=== PATIENT | male | born 1955 | race Caucasian/White ===

== ENCOUNTER 2018-11-17 14:46 | Inpatient (IN) | payer MEDICARE, BC ==
[2018-11-17] MEDS ORDERED: Albuterol/Ipratropium 3.0-0.5 MG/3 ML Neb Soln NEB PRN (16:47)
--- NOTE | 2018-11-17 17:24 | PCM.HP ---
H&P History of Present Illness - General Date of Service: 11/17/18 Admit Problem/Dx: Admission Diagnosis/Problem Admission Diagnosis/Problem Pneumonia Source of Information: Patient History Limitations: Reports: No Limitations - History of Present Illness Initial Comments - Free Text/Narative: Patient presents to the clinic with the complaint of not feeling well. Has chills, thirsty, and body aches. Denies a fever or a cough. Denies chest pain. Recently traveled [place] to [place] to visit his sone returned on November 08, felt fine during the trip but walked about 15,000 feet each day and was at 4 different airports. Patient's feels fine. Patient recently had laser treatment done on his head for skin cancer on November 15, 2018 and that afternoon started to feel weak. Denies any rash or GI symptoms. Onset of Symptoms: Reports: Gradual Duration of Symptoms: Reports: Getting Worse Location: Reports: Chest Quality: Reports: Ache Improves with: Reports: Rest Worsens with: Reports: Movement Associated Symptoms: Reports: Fever/Chills, Loss of Appetite, Malaise, Weakness - Related Data Allergies/Adverse Reactions: Allergies Allergy/AdvReac Type Severity Reaction Status Date / Time fluticasone [From Flonase] Allergy Headache Verified 11/17/18 16:23 Home Medications: Home Meds Warfarin [Coumadin] 7.5 mg PO DAILY@1800 10/05/15 [History] metFORMIN HCl [Metformin HCl] 1,000 mg PO BID 10/05/15 [History] Flecainide Acetate 100 mg PO BID 10/06/15 [History] Metoprolol Tartrate 50 mg PO BID 10/06/15 [History] Pantoprazole Sodium 40 mg PO DAILY@209910/06/15 [History] Sertraline [Zoloft] 50 mg PO DAILY@209910/06/15 [History] atorvaSTATin [Lipitor] 10 mg PO BEDTIME 10/06/15 [History] Tamsulosin HCl 0.4 mg PO DAILY@209911/17/18 [History] Past Medical History HEENT History: Reports: Impaired Vision Cardiovascular History: Reports: Afib, Arrhythmia, High Cholesterol, Hypertension Respiratory History: Reports: Sleep Apnea Gastrointestinal History: Reports: Colon Polyp, Gastritis, GERD, GI Bleed, Hiatal Hernia, PUD Genitourinary History: Reports: Renal Calculus Musculoskeletal History: Reports: Arthritis, Fracture, Gout, Osteoarthritis Neurological History: Reports: Headaches, Chronic, Neuropathy, Diabetic Psychiatric History: Reports: Anxiety, Depression Endocrine/Metabolic History: Reports: Diabetes, Type II Hematologic History: Reports: None Immunologic History: Reports: None Oncologic (Cancer) History: Reports: Basal Cell Carcinoma Dermatologic History: Reports: None - Infectious Disease History Infectious Disease History: Reports: Chicken Pox, Measles, Mumps, Scarlet Fever - Past Surgical History Head Surgeries/Procedures: Reports: None HEENT Surgical History: Reports: Adenoidectomy, Oral Surgery, Tonsillectomy Male Surgical History: Reports: Circumcision, Varicocele Resection Musculoskeletal Surgical History: Reports: None Dermatological Surgical History: Reports: None - Past Imaging History Past Imaging History: Reports: Carotid US, MRI, Sleep Study, Stress Testing Social & Family History - Tobacco Use Smoking Status *Q: Former Smoker Years of Tobacco use: 7 Packs/Tins Daily: 0.5 Used Tobacco, but Quit: Yes Month/Year Tobacco Last Used: 1986 Second Hand Smoke Exposure: No - Caffeine Use Caffeine Use: Reports: Soda - Recreational Drug Use Recreational Drug Use: No - Living Situation & Occupation Living situation: Reports: Occupation: Employed H&P Review of Systems - Review of Systems: Review Of Systems: See Below General: Reports: Weakness HEENT: Reports: Headaches Pulmonary: Reports: No Symptoms Cardiovascular: Reports: Lightheadedness Gastrointestinal: Reports: No Symptoms Genitourinary: Reports: No Symptoms Musculoskeletal: Reports: Muscle Pain Skin: Reports: No Symptoms Psychiatric: Reports: No Symptoms Neurological: Reports: No Symptoms Hematologic/Lymphatic: Reports: No Symptoms Immunologic: Reports: No Symptoms Exam - Exam Exam: See Below - Vital Signs Vital Signs: Last Vital Signs Temp 100 F 11/17/18 16:04 Pulse 68 11/17/18 16:04 Resp 20 11/17/18 16:04 BP 135/55 L 11/17/18 16:04 Pulse Ox 100 11/17/18 16:04 Weight: 303 lb - Exam Quality Assessment: DVT Prophylaxis (om coumadin) General: Alert, Oriented, Cooperative HEENT: Conjunctiva Clear, EACs Clear, EOMI, Mucosa Moist & [place], Posterior Pharynx Clear, Pupils Reactive, TMs Clear Neck: Supple, Trachea Midline Lungs: Clear to Auscultation, Normal Respiratory Effort Cardiovascular: Regular Rate, Regular Rhythm, Normal S1, Normal S2 GI/Abdominal Exam: Normal Bowel Sounds, Soft, Non-Tender, No Organomegaly Back Exam: Normal Inspection, Full Range of Motion Extremities: Normal Inspection, Normal Range of Motion, Non-Tender, No Pedal Edema, Normal Capillary Refill Peripheral Pulses: 1+: Dorsalis Pedis (L), Dorsalis Pedis (R) Skin: Warm, Dry, Intact Neurological: Cranial Nerves Intact, Reflexes Equal Bilateral Neuro Extensive - Mental Status: Alert, Oriented x3, Normal Mood/Affect, Normal Cognition, Memory Intact DTR: 1+: Achilles (L), Achilles (R) Psychiatric: Alert, Normal Affect, Normal Mood - Problem List (1) Pneumonia SNOMED Code(s): 250582408 ICD Code: J18.9 - PNEUMONIA, UNSPECIFIED ORGANISM Status: Acute Current Visit: Yes Qualifiers: Pneumonia type: due to unspecified organism Laterality: left (2) Diabetes SNOMED Code(s): 85358742 ICD Code: E11.9 - TYPE 2 DIABETES MELLITUS WITHOUT COMPLICATIONS Status: Acute Current Visit: Yes Qualifiers: Diabetes mellitus type: type 2 Diabetes mellitus complication status: without complication (3) Lactic acid blood increased SNOMED Code(s): 1368616 ICD Code: R79.89 - OTHER SPECIFIED ABNORMAL FINDINGS OF BLOOD CHEMISTRY Status: Acute Current Visit: Yes (4) Dehydration SNOMED Code(s): 93361040 ICD Code: E86.0 - DEHYDRATION Status: Acute Current Visit: Yes Problem List Initiated/Reviewed/Updated: Yes Orders Last 24hrs: Active Orders 24 hr Category Date Time Status Patient Status [ADT] Routine ADT 11/17/18 16:47 Ordered Antiembolic Devices [RC] PER UNIT ROUTINE Care 11/17/18 16:49 Ordered Blood Glucose Check, Bedside [RC] BIDMEALS Care 11/17/18 16:47 Ordered Height and Weight [RC] DAILY Care 11/17/18 16:47 Ordered Intake and Output [RC] QSHIFT Care 11/17/18 16:48 Ordered May Shower [RC] ASDIRECTED Care 11/17/18 16:47 Ordered Oxygen Therapy [RC] PRN Care 11/17/18 16:47 Ordered Peripheral IV Care [RC] . DIRECTED Care 11/17/18 16:49 Ordered RT Aerosol Therapy [RC] ASDIRECTED Care 11/17/18 16:50 Ordered Up ad Tia [RC] ASDIRECTED Care 11/17/18 16:47 Ordered VTE/DVT Education [RC] PER UNIT ROUTINE Care 11/17/18 16:47 Ordered Vital Signs [RC] Q4H Care 11/17/18 16:47 Ordered [place] [employer] Diet [DIET] Diet 11/17/18 Dinner Ordered Chest 2V [CR] Routine Exams 11/17/18 14:45 Taken Chest 2V [CR] Routine Exams 11/20/18 07:00 Ordered C-REACTIVE PROTEIN [CHEM] DAILY Lab 11/18/18 05:11 Ordered C-REACTIVE PROTEIN [CHEM] DAILY Lab 11/19/18 05:11 Ordered C-REACTIVE PROTEIN [CHEM] DAILY Lab 11/20/18 05:11 Ordered C-REACTIVE PROTEIN [CHEM] DAILY Lab 11/21/18 05:11 Ordered CBC WITH AUTO DIFF [HEME] DAILY Lab 11/18/18 05:11 Ordered CBC WITH AUTO DIFF [HEME] DAILY Lab 11/19/18 05:11 Ordered CBC WITH AUTO DIFF [HEME] DAILY Lab 11/20/18 05:11 Ordered CBC WITH AUTO DIFF [HEME] DAILY Lab 11/21/18 05:11 Ordered COMPREHENSIVE METABOLIC PN,CMP [CHEM] DAILY Lab 11/18/18 05:11 Ordered COMPREHENSIVE METABOLIC PN,CMP [CHEM] DAILY Lab 11/19/18 05:11 Ordered COMPREHENSIVE METABOLIC PN,CMP [CHEM] DAILY Lab 11/20/18 05:11 Ordered COMPREHENSIVE METABOLIC PN,CMP [CHEM] DAILY Lab 11/21/18 05:11 Ordered CULTURE BLOOD [BC] Stat Lab 11/17/18 16:51 Ordered CULTURE BLOOD [BC] Stat Lab 11/17/18 16:51 Ordered CULTURE URINE [RM] Stat Lab 11/17/18 16:47 Ordered INR,PT,PROTHROMBIN TIME [COAG] DAILY Lab 11/18/18 05:11 Ordered INR,PT,PROTHROMBIN TIME [COAG] DAILY Lab 11/19/18 05:11 Ordered INR,PT,PROTHROMBIN TIME [COAG] DAILY Lab 11/20/18 05:11 Ordered INR,PT,PROTHROMBIN TIME [COAG] DAILY Lab 11/21/18 05:11 Ordered MYCOPLASMA IGM RAPID [MREF] Routine Lab 11/18/18 05:11 Ordered UA W/MICROSCOPIC [URIN] Routine Lab 11/17/18 16:47 Ordered Acetaminophen [Tylenol] Med 11/17/18 16:47 Ordered 650 mg PO Q4H PRN Albuterol/Ipratropium [DuoNeb 3.0-0.5 MG/3 ML] Med 11/17/18 16:47 Ordered 3 ml NEB Q4H PRN Azithromycin [Zithromax] Med 11/20/18 16:00 Ordered 500 mg PO DAILY Azithromycin [Zithromax] 500 mg Med 11/17/18 17:00 Ordered Sodium Chloride 0.9% [Normal Saline] 250 ml IV Q24H Flecainide [Tambocor] Med 11/17/18 18:00 Ordered 100 mg PO BID Lactated Ringers [Ringers, Lactated] 1,000 ml Med 11/17/18 17:00 Ordered IV ASDIRECTED Metoprolol Tartrate [Lopressor] Med 11/17/18 18:00 Ordered 50 mg PO BID Pantoprazole [ProTONIX] Med 11/17/18 21:00 Ordered 40 mg PO DAILY@2100 Sertraline [Zoloft] Med 11/17/18 21:00 Ordered 50 mg PO DAILY@2100 Sodium Chloride 0.9% [Saline Flush] Med 11/17/18 16:47 Ordered 10 ml FLUSH ASDIRECTED PRN Tamsulosin [Flomax] Med 11/17/18 21:00 Ordered 0.4 mg PO DAILY@2100 atorvaSTATin [Lipitor] Med 11/17/18 20:00 Ordered 10 mg PO BEDTIME cefTAZidime Pentahydrate [Fortaz] Med 11/18/18 00:00 Ordered 1 gm IVPUSH Q8HR Antiembolic Hose [OM.PC] Per Unit Routine Oth 11/17/18 16:49 Ordered Blood Culture x2 Reflex Set [OM.PC] Stat Oth 11/17/18 16:47 Ordered Peripheral IV Insertion Adult [OM.PC] Routine Oth 11/17/18 16:47 Ordered Saline Lock Insert [OM.PC] Routine Oth 11/17/18 16:47 Ordered Resuscitation Status Routine Resus Stat 11/17/18 16:47 Ordered Medication Orders Acetaminophen (Tylenol) 650 mg PO Q4H PRN PRN Reason: Pain (Mild 1-3)/fever Albuterol/Ipratropium (Duoneb 3.0-0.5 Mg/3 Ml) 3 ml NEB Q4H PRN PRN Reason: Dyspnea Atorvastatin Calcium (Lipitor) 10 mg PO BEDTIME [facility] Azithromycin (Zithromax) 500 mg PO DAILY [facility] Ceftazidime (Fortaz) 1 gm IVPUSH Q8HR [facility] Flecainide Acetate (Tambocor) 100 mg PO BID [facility] Lactated Ringer's (Ringers, Lactated) 1,000 mls @ 75 mls/hr IV ASDIRECTED [facility] Azithromycin 500 mg/ Sodium (Chloride) 250 mls @ 250 mls/hr IV Q24H [facility] Stop: 11/19/18 17:59 Metoprolol Tartrate (Lopressor) 50 mg PO BID [facility] Pantoprazole Sodium (Protonix) 40 mg PO DAILY@2100 [facility] Sertraline HCl (Zoloft) 50 mg PO DAILY@2100 [facility] Sodium Chloride (Saline Flush) 10 ml FLUSH ASDIRECTED PRN PRN Reason: Keep Vein Open Tamsulosin HCl (Flomax) 0.4 mg PO DAILY@2100 [facility] Assessment/Plan Comment:: 11/17/2018 Patient is admitted to inpatient services due to pneumonia, elevated lactic acid (will hold metformin), dehydration. Patient needing IV antibiotics and IV fluids and close monitoring of blood sugars due to his severity of his pneumonia. INR elevated, will hold coumadin and recheck INR in the morning. patient agreed to hospitalization in [place]. Discussed with Dr Bello. Recheck labs in the morning. Aliyah Robles,SUMMER LAW CLERK
[2018-11-17] MEDS: Azithromycin 500 MG in Sodium Chloride 0.9% 250 ML IV SCH (17:37)
[2018-11-17] MEDS ORDERED: Flecainide 100 MG Tab PO SCH (18:00)
[2018-11-17] MEDS ORDERED: Metoprolol Tartrate 50 MG Tab PO SCH (18:00)
[2018-11-17] MEDS: cefTAZidime 1 GM Vial IVPUSH SCH (18:45)
[2018-11-17] MEDS: Lactated Ringers 1,000 ML IV SCH (18:45)
[2018-11-17] MEDS: Flecainide 100 MG Tab PO SCH (21:01)
[2018-11-17] MEDS: Tamsulosin 0.4 MG Cap.ER PO SCH (21:01)
[2018-11-17] MEDS: atorvaSTATin 10 MG Tab PO SCH (21:01)
[2018-11-17] MEDS: Pantoprazole 40 MG Tab.CR PO SCH (21:02)
[2018-11-17] MEDS: Metoprolol Tartrate 50 MG Tab PO SCH (21:02)
[2018-11-17] MEDS: Sertraline 50 MG Tab PO SCH ×2 (21:02→21:09)
[2018-11-17] MEDS: Acetaminophen 325 MG Tab PO PRN (21:18)
[2018-11-18] MEDS: cefTAZidime 1 GM Vial IVPUSH SCH ×3 (03:46→19:49)
[2018-11-18] MEDS: Sodium Chloride 0.9% 10 ML Syringe FLUSH PRN ×3 (03:47→10:51)
[2018-11-18] MEDS: Sertraline 50 MG Tab PO SCH (07:42)
[2018-11-18] MEDS: Flecainide 100 MG Tab PO SCH ×2 (07:42→19:50)
[2018-11-18] MEDS: Metoprolol Tartrate 50 MG Tab PO SCH ×2 (07:43→19:53)
[2018-11-18] MEDS: Acetaminophen 325 MG Tab PO PRN ×2 (07:45→21:06)
[2018-11-18] MEDS: Lactated Ringers 1,000 ML IV SCH (07:51)
[2018-11-18 08:05] LABS: CHLORIDE,CL 102 mmol/L (98-107); SODIUM,NA 138 mmol/L (136-145)
[2018-11-18] MEDS ORDERED: guaiFENesin 600 MG Tab.ER PO PRN (17:29)
--- NOTE | 2018-11-18 17:46 | PCM.PN ---
- General Info Date of Service: 11/18/18 Admission Dx/Problem (Free Text): Admission Diagnosis/Problem Admission Diagnosis/Problem Pneumonia Functional Status: Reports: Pain Controlled, Tolerating Diet, Urinating - Review of Systems General: Reports: Fever, Weakness HEENT: Reports: No Symptoms Pulmonary: Reports: Cough Cardiovascular: Reports: No Symptoms Gastrointestinal: Reports: No Symptoms Genitourinary: Reports: No Symptoms Musculoskeletal: Reports: No Symptoms Skin: Reports: No Symptoms Neurological: Reports: Weakness Psychiatric: Reports: No Symptoms - Patient Data Vitals - Most Recent: Last Vital Signs Temp 97.6 F 11/18/18 11:00 Pulse 62 11/18/18 11:00 Resp 17 11/18/18 11:00 BP 129/42 L 11/18/18 11:00 Pulse Ox 96 11/18/18 11:00 Weight - Most Recent: 311 lb 14.4 oz I&O - Last 24 Hours: Intake & Output 11/18/18 11/18/18 11/18/18 06:59 14:59 22:59 Intake Total 200 1679 Balance 200 1679 Lab Results Last 24 Hours: Laboratory Results - last 24 hr 11/18/18 11/18/18 11/18/18 Range/Units 05:30 07:13 07:15 WBC 7.1 (4.0-10.2) K/uL RBC 3.31 L (4.33-5.41) M/uL Hgb 10.6 L (13.1-16.8) g/dL Hct 30.4 L (39.0-49.0) % MCV 91.8 (84.0-98.0) fL MCH 32.0 (28.2-33.3) pg MCHC 34.9 (31.7-36.0) g/dL RDW 13.6 (11.2-14.1) % Plt Count 83 L (150-350) K/uL Neut % (Auto) 84.2 H (45.0-80.0) % Lymph % (Auto) 4.3 L (10.0-50.0) % [place] % (Auto) 11.3 (2.0-14.0) % Eos % (Auto) 0.1 (0.0-5.0) % Baso % (Auto) 0.1 (0.0-2.0) % Neut # (Auto) 6.00 (1.40-7.00) K/uL Lymph # (Auto) 0.31 L (0.50-3.50) K/uL [place] # (Auto) 0.81 (0.00-1.00) K/uL Eos # (Auto) 0.01 (0.00-0.50) K/uL Baso # (Auto) 0.01 (0.00-0.20) K/uL PT (9.5-12.0) SEC INR Sodium (136-145) mmol/L Potassium (3.5-5.1) mmol/L Chloride (98-107) mmol/L Carbon Dioxide (21.0-32.0) mmol/L BUN (7-18) mg/dL Creatinine (0.51-1.17) mg/dL Est Cr Clr Drug Dosing mL/min Estimated GFR (MDRD) mL/min Glucose (74-106) mg/dL POC Glucose 172 H (65-110) mg/dl Calcium (8.5-10.1) mg/dL Total Bilirubin (0.2-1.0) mg/dL AST (15-37) U/L ALT (12-78) U/L Alkaline Phosphatase (46-116) IU/L C-Reactive Protein (<=0.9) mg/dL Total Protein (6.4-8.2) g/dL Albumin (3.4-5.0) g/dL Specimen Type Urinblad Urine Color Yellow Urine Appearance Clear Urine pH 5.5 (5.0-9.0) Ur Specific [place] 1.015 (1.005-1.030) Urine Protein Negative (NEGATIVE) mg/dL Urine Glucose (UA) Negative (NEGATIVE) mg/dL Urine Ketones Negative (NEGATIVE) mg/dL Urine Occult Blood Trace-intact H (NEGATIVE) Urine Nitrite Negative (NEGATIVE) Urine Bilirubin Negative (NEGATIVE) Urine Urobilinogen 4.0 H (0.2-1.0) E.U./dL Ur Leukocyte Esterase Negative (NEGATIVE) Urine RBC 0-5 /HPF Urine WBC 0-5 /HPF Ur Epithelial Cells Rare /LPF Urine Bacteria Rare (NONE TO FEW) /HPF 11/18/18 11/18/18 11/18/18 Range/Units 07:15 07:15 17:16 WBC (4.0-10.2) K/uL RBC (4.33-5.41) M/uL Hgb (13.1-16.8) g/dL Hct (39.0-49.0) % MCV (84.0-98.0) fL MCH (28.2-33.3) pg MCHC (31.7-36.0) g/dL RDW (11.2-14.1) % Plt Count (150-350) K/uL Neut % (Auto) (45.0-80.0) % Lymph % (Auto) (10.0-50.0) % [place] % (Auto) (2.0-14.0) % Eos % (Auto) (0.0-5.0) % Baso % (Auto) (0.0-2.0) % Neut # (Auto) (1.40-7.00) K/uL Lymph # (Auto) (0.50-3.50) K/uL [place] # (Auto) (0.00-1.00) K/uL Eos # (Auto) (0.00-0.50) K/uL Baso # (Auto) (0.00-0.20) K/uL PT 34.7 H (9.5-12.0) SEC INR 3.2 Sodium 138 (136-145) mmol/L Potassium 3.5 (3.5-5.1) mmol/L Chloride 102 (98-107) mmol/L Carbon Dioxide 24.1 (21.0-32.0) mmol/L BUN 15 (7-18) mg/dL Creatinine 0.87 (0.51-1.17) mg/dL Est Cr Clr Drug Dosing 90.16 mL/min Estimated GFR (MDRD) > 60 mL/min Glucose 175 H (74-106) mg/dL POC Glucose 170 H (65-110) mg/dl Calcium 7.4 L (8.5-10.1) mg/dL Total Bilirubin 1.1 H (0.2-1.0) mg/dL AST 22 (15-37) U/L ALT 30 (12-78) U/L Alkaline Phosphatase 109 (46-116) IU/L C-Reactive Protein 21.4 H (<=0.9) mg/dL Total Protein 5.9 L (6.4-8.2) g/dL Albumin 2.5 L (3.4-5.0) g/dL Specimen Type Urine Color Urine Appearance Urine pH (5.0-9.0) Ur Specific [place] (1.005-1.030) Urine Protein (NEGATIVE) mg/dL Urine Glucose (UA) (NEGATIVE) mg/dL Urine Ketones (NEGATIVE) mg/dL Urine Occult Blood (NEGATIVE) Urine Nitrite (NEGATIVE) Urine Bilirubin (NEGATIVE) Urine Urobilinogen (0.2-1.0) E.U./dL Ur Leukocyte Esterase (NEGATIVE) Urine RBC /HPF Urine WBC /HPF Ur Epithelial Cells /LPF Urine Bacteria (NONE TO FEW) /HPF [place] Results Last 24 Hours: Microbiology 11/17/18 17:10 Aerobic Blood Culture - Preliminary Blood - Venous - Lab Draw NO GROWTH AFTER 1 DAY Anaerobic Blood Culture - Preliminary NO GROWTH AFTER 1 DAY 11/17/18 17:00 Aerobic Blood Culture - Preliminary Blood - Venous NO GROWTH AFTER 1 DAY Anaerobic Blood Culture - Preliminary NO GROWTH AFTER 1 DAY Med Orders - Current: Current Medications Acetaminophen (Tylenol) 650 mg PO Q4H PRN PRN Reason: Pain (Mild 1-3)/fever Last Admin: 11/18/18 07:45 Dose: 650 mg Albuterol/Ipratropium (Duoneb 3.0-0.5 Mg/3 Ml) 3 ml NEB Q4H PRN PRN Reason: Dyspnea Atorvastatin Calcium (Lipitor) 10 mg PO BEDTIME [facility] Last Admin: 11/17/18 21:01 Dose: 10 mg Azithromycin (Zithromax) 500 mg PO DAILY [facility] Ceftazidime (Fortaz) 1 gm IVPUSH Q8H [facility] Last Admin: 11/18/18 10:50 Dose: 1 gm Flecainide Acetate (Tambocor) 100 mg PO BID@0800,1999 [facility] Last Admin: 11/18/18 07:42 Dose: 100 mg Guaifenesin (Mucinex) 600 mg PO TID PRN PRN Reason: Cough Azithromycin 500 mg/ Sodium (Chloride) 250 mls @ 250 mls/hr IV Q24H [facility] Stop: 11/19/18 17:59 Last Admin: 11/17/18 17:37 Dose: 250 mls/hr Metoprolol Tartrate (Lopressor) 50 mg PO BID@0800,1999 [facility] Last Admin: 11/18/18 07:43 Dose: 50 mg Pantoprazole Sodium (Protonix) 40 mg PO DAILY@2099 [facility] Last Admin: 11/17/18 21:02 Dose: 40 mg Sertraline HCl (Zoloft) 50 mg PO DAILY [facility] Last Admin: 11/18/18 07:42 Dose: 50 mg Sodium Chloride (Saline Flush) 10 ml FLUSH ASDIRECTED PRN PRN Reason: Keep Vein Open Last Admin: 11/18/18 10:51 Dose: 10 ml Sodium Chloride (Saline Flush) 10 ml FLUSH Q12HR [facility] Tamsulosin HCl (Flomax) 0.4 mg PO DAILY@2099 [facility] Last Admin: 11/17/18 21:01 Dose: 0.4 mg Temazepam (Restoril) 15 mg PO BEDTIME PRN PRN Reason: Insomnia Discontinued Medications Flecainide Acetate (Tambocor) 100 mg PO BID [facility] Lactated Ringer's (Ringers, Lactated) 1,000 mls @ 75 mls/hr IV ASDIRECTED [facility] Last Admin: 11/18/18 07:51 Dose: 75 mls/hr Metoprolol Tartrate (Lopressor) 50 mg PO BID [facility] Sertraline HCl (Zoloft) 50 mg PO DAILY@2099 [facility] Last Admin: 11/17/18 21:09 Dose: Not Given - Exam Quality Assessment: DVT Prophylaxis General: Alert, Cooperative, No Acute Distress HEENT: Mucous Membr. Moist/[place] Neck: Trachea Midline, No JVD Lungs: Normal Respiratory Effort, Crackles (LLL), Rhonchi (LLL) Cardiovascular: Irregular Rhythm GI/Abdominal Exam: Soft, Non-Tender, No Distention (Male) Exam: Deferred Back Exam: Normal Inspection Extremities: Normal Inspection, Non-Tender Skin: Warm, Dry, Intact, Ecchymosis Neurological: No New Focal Deficit Psy/Mental Status: Alert, Normal Affect, Normal Mood - Problem List & Annotations (1) Dehydration SNOMED Code(s): 77418955 Code(s): E86.0 - DEHYDRATION Status: Acute Current Visit: Yes (2) Diabetes SNOMED Code(s): 68745031 Code(s): E11.9 - TYPE 2 DIABETES MELLITUS WITHOUT COMPLICATIONS Status: Acute Current Visit: Yes Qualifiers: Diabetes mellitus type: type 2 Diabetes mellitus complication status: without complication (3) Pneumonia SNOMED Code(s): 600294194 Code(s): J18.9 - PNEUMONIA, UNSPECIFIED ORGANISM Status: Acute Current Visit: Yes Qualifiers: Pneumonia type: due to unspecified organism Laterality: left (4) Atrial fibrillation SNOMED Code(s): 17386427 Code(s): I48.91 - UNSPECIFIED ATRIAL FIBRILLATION Status: Chronic Priority: Medium Current Visit: No Qualifiers: Atrial fibrillation type: paroxysmal Qualified Code(s): I48.0 - Paroxysmal atrial fibrillation Annotation/Comment:: Normally in sinus rhythm as he is today with current medical therapy. INRs have been therapeutic and stable usually around 2.0 (5) Hypertension SNOMED Code(s): 61725983 Code(s): I10 - ESSENTIAL (PRIMARY) HYPERTENSION Status: Chronic Priority : Medium Current Visit: No Qualifiers: Hypertension type: essential hypertension Qualified Code(s): I10 - Essential (primary) hypertension Annotation/Comment:: Blood pressure is under good control in the emergency room (6) Mixed anxiety depressive disorder SNOMED Code(s): 277899287 Code(s): F41.8 - OTHER SPECIFIED ANXIETY DISORDERS Status: Chronic Priority: Medium Current Visit: No Annotation/Comment:: Continue to observe closely by his regular providers (7) Peptic reflux disease SNOMED Code(s): 132823685 Code(s): K21.9 - GASTRO-ESOPHAGEAL REFLUX DISEASE WITHOUT ESOPHAGITIS Status: Chronic Priority: Medium Current Visit: No Annotation/Comment:: Stable by patient history (8) Sleep apnea SNOMED Code(s): 38984721 Code(s): G47.30 - SLEEP APNEA, UNSPECIFIED Status: Chronic Priority: Medium Current Visit: No Annotation/Comment:: Patient has been compliant with his CPAP - Problem List Review Problem List Initiated/Reviewed/Updated: Yes - My Orders Last 24 Hours: My Active Orders 11/18/18 17:27 Temazepam [Restoril] 15 mg PO BEDTIME PRN 11/18/18 17:29 guaiFENesin [Mucinex] 600 mg PO TID PRN 11/18/18 20:00 Sodium Chloride 0.9% [Saline Flush] 10 ml FLUSH Q12HR - Plan Plan:: 11/17/2018 Patient is admitted to inpatient services due to pneumonia, elevated lactic acid (will hold metformin), dehydration. Patient needing IV antibiotics and IV fluids and close monitoring of blood sugars due to his severity of his pneumonia. INR elevated, will hold coumadin and recheck INR in the morning. patient agreed to hospitalization in [place]. Discussed with Dr Bello. Recheck labs in the morning. Aliyah Robles,LEARNING AND DEVELOPMENT CONSULTANT 11/18/18 Eugenia Calles MD Starting to feel a little bit better today. Still coughing. Coumadin on hold. Continue IV antibiotics.
[2018-11-18] MEDS: Azithromycin 500 MG in Sodium Chloride 0.9% 250 ML IV SCH (18:21)
[2018-11-18] MEDS: Sodium Chloride 0.9% 10 ML Syringe FLUSH SCH ×2 (18:21→19:50)
[2018-11-18] MEDS: atorvaSTATin 10 MG Tab PO SCH (19:49)
[2018-11-18] MEDS: Pantoprazole 40 MG Tab.CR PO SCH (21:02)
[2018-11-18] MEDS: Tamsulosin 0.4 MG Cap.ER PO SCH (21:02)
[2018-11-18] MEDS: Temazepam 15 MG Cap PO PRN (21:06)
[2018-11-19] MEDS: Sodium Chloride 0.9% 10 ML Syringe FLUSH PRN ×3 (02:50→17:46)
[2018-11-19] MEDS: cefTAZidime 1 GM Vial IVPUSH SCH ×3 (02:50→19:20)
[2018-11-19] MEDS: Flecainide 100 MG Tab PO SCH ×2 (07:46→19:20)
[2018-11-19] MEDS: Metoprolol Tartrate 50 MG Tab PO SCH ×2 (07:46→19:21)
[2018-11-19] MEDS: Sertraline 50 MG Tab PO SCH (07:47)
[2018-11-19 07:51] LABS: CHLORIDE,CL 104 mmol/L (98-107); SODIUM,NA 141 mmol/L (136-145)
[2018-11-19] MEDS: Sodium Chloride 0.9% 10 ML Syringe FLUSH SCH ×2 (08:45→19:21)
[2018-11-19] MEDS: Acetaminophen 325 MG Tab PO PRN (13:04)
[2018-11-19] MEDS: Warfarin 2 MG Tab PO SCH (17:45)
[2018-11-19] MEDS: Azithromycin 500 MG in Sodium Chloride 0.9% 250 ML IV SCH (17:46)
[2018-11-19] MEDS: atorvaSTATin 10 MG Tab PO SCH (19:20)
[2018-11-19] MEDS: Pantoprazole 40 MG Tab.CR PO SCH (20:23)
[2018-11-19] MEDS: Tamsulosin 0.4 MG Cap.ER PO SCH (20:23)
[2018-11-19] MEDS: Temazepam 15 MG Cap PO PRN (21:26)
--- NOTE | 2018-11-19 23:44 | PCM.PN ---
- General Info Date of Service: 11/19/18 Admission Dx/Problem (Free Text): Admission Diagnosis/Problem Admission Diagnosis/Problem Pneumonia Functional Status: Reports: Tolerating Diet, Ambulating - Review of Systems General: Reports: Fever (101.4F today at ~12:00), Weakness (improving) HEENT: Reports: Other (nose feels plugged) Pulmonary: Reports: Cough (improved) Cardiovascular: Reports: No Symptoms Gastrointestinal: Reports: No Symptoms Genitourinary: Reports: No Symptoms Musculoskeletal: Reports: No Symptoms Skin: Reports: No Symptoms Neurological: Reports: Weakness (improving) Psychiatric: Reports: No Symptoms - Patient Data Vitals - Most Recent: Last Vital Signs Temp 98.3 F 11/19/18 19:13 Pulse 71 11/19/18 19:21 Resp 12 11/19/18 19:13 BP 129/60 11/19/18 19:21 Pulse Ox 100 11/19/18 19:13 Weight - Most Recent: 311 lb 14.4 oz I&O - Last 24 Hours: Intake & Output 11/19/18 11/19/18 11/20/18 14:59 22:59 06:59 Intake Total 1610 2620 Balance 1610 2620 Lab Results Last 24 Hours: Laboratory Results - last 24 hr 11/19/18 11/19/18 11/19/18 Range/Units 07:10 07:10 07:10 WBC 5.3 (4.0-10.2) K/uL RBC 3.22 L (4.33-5.41) M/uL Hgb 10.2 L (13.1-16.8) g/dL Hct 29.9 L (39.0-49.0) % MCV 92.9 (84.0-98.0) fL MCH 31.7 (28.2-33.3) pg MCHC 34.1 (31.7-36.0) g/dL RDW 13.7 (11.2-14.1) % Plt Count 78 L (150-350) K/uL Neut % (Auto) 77.7 (45.0-80.0) % Lymph % (Auto) 6.6 L (10.0-50.0) % [place] % (Auto) 14.7 H (2.0-14.0) % Eos % (Auto) 0.8 (0.0-5.0) % Baso % (Auto) 0.2 (0.0-2.0) % Neut # (Auto) 4.11 (1.40-7.00) K/uL Lymph # (Auto) 0.35 L (0.50-3.50) K/uL [place] # (Auto) 0.78 (0.00-1.00) K/uL Eos # (Auto) 0.04 (0.00-0.50) K/uL Baso # (Auto) 0.01 (0.00-0.20) K/uL PT 26.1 H (9.5-12.0) SEC INR 2.4 Sodium 141 (136-145) mmol/L Potassium 3.8 (3.5-5.1) mmol/L Chloride 104 (98-107) mmol/L Carbon Dioxide 27.1 (21.0-32.0) mmol/L BUN 15 (7-18) mg/dL Creatinine 0.84 (0.51-1.17) mg/dL Est Cr Clr Drug Dosing 93.38 mL/min Estimated GFR (MDRD) > 60 mL/min Glucose 167 H (74-106) mg/dL POC Glucose (65-110) mg/dl Calcium 7.7 L (8.5-10.1) mg/dL Total Bilirubin 1.1 H (0.2-1.0) mg/dL AST 33 (15-37) U/L ALT 44 (12-78) U/L Alkaline Phosphatase 128 H (46-116) IU/L C-Reactive Protein 22.0 H (<=0.9) mg/dL Total Protein 5.9 L (6.4-8.2) g/dL Albumin 2.3 L (3.4-5.0) g/dL 11/19/18 11/19/18 Range/Units 07:17 17:04 WBC (4.0-10.2) K/uL RBC (4.33-5.41) M/uL Hgb (13.1-16.8) g/dL Hct (39.0-49.0) % MCV (84.0-98.0) fL MCH (28.2-33.3) pg MCHC (31.7-36.0) g/dL RDW (11.2-14.1) % Plt Count (150-350) K/uL Neut % (Auto) (45.0-80.0) % Lymph % (Auto) (10.0-50.0) % [place] % (Auto) (2.0-14.0) % Eos % (Auto) (0.0-5.0) % Baso % (Auto) (0.0-2.0) % Neut # (Auto) (1.40-7.00) K/uL Lymph # (Auto) (0.50-3.50) K/uL [place] # (Auto) (0.00-1.00) K/uL Eos # (Auto) (0.00-0.50) K/uL Baso # (Auto) (0.00-0.20) K/uL PT (9.5-12.0) SEC INR Sodium (136-145) mmol/L Potassium (3.5-5.1) mmol/L Chloride (98-107) mmol/L Carbon Dioxide (21.0-32.0) mmol/L BUN (7-18) mg/dL Creatinine (0.51-1.17) mg/dL Est Cr Clr Drug Dosing mL/min Estimated GFR (MDRD) mL/min Glucose (74-106) mg/dL POC Glucose 175 H 163 H (65-110) mg/dl Calcium (8.5-10.1) mg/dL Total Bilirubin (0.2-1.0) mg/dL AST (15-37) U/L ALT (12-78) U/L Alkaline Phosphatase (46-116) IU/L C-Reactive Protein (<=0.9) mg/dL Total Protein (6.4-8.2) g/dL Albumin (3.4-5.0) g/dL Kaden Results Last 24 Hours: Microbiology 11/17/18 17:10 Aerobic Blood Culture - Preliminary Blood - Venous - Lab Draw NO GROWTH AFTER 2 DAYS Anaerobic Blood Culture - Preliminary NO GROWTH AFTER 2 DAYS 11/17/18 17:00 Aerobic Blood Culture - Preliminary Blood - Venous NO GROWTH AFTER 2 DAYS Anaerobic Blood Culture - Preliminary NO GROWTH AFTER 2 DAYS 11/18/18 05:30 Urine Culture - Preliminary Urine, Bladder NO GROWTH AFTER 1 DAY Med Orders - Current: Current Medications Acetaminophen (Tylenol) 650 mg PO Q4H PRN PRN Reason: Pain (Mild 1-3)/fever Last Admin: 11/19/18 13:04 Dose: 650 mg Albuterol/Ipratropium (Duoneb 3.0-0.5 Mg/3 Ml) 3 ml NEB Q4H PRN PRN Reason: Dyspnea Atorvastatin Calcium (Lipitor) 10 mg PO BEDTIME [facility] Last Admin: 11/19/18 19:20 Dose: 10 mg Azithromycin (Zithromax) 500 mg PO DAILY [facility] Ceftazidime (Fortaz) 1 gm IVPUSH Q8H [facility] Last Admin: 11/19/18 19:20 Dose: 1 gm Flecainide Acetate (Tambocor) 100 mg PO BID@08,1999 [facility] Last Admin: 11/19/18 19:20 Dose: 100 mg Guaifenesin (Mucinex) 600 mg PO TID PRN PRN Reason: Cough Metoprolol Tartrate (Lopressor) 50 mg PO BID@08,1999 [facility] Last Admin: 11/19/18 19:21 Dose: 50 mg Pantoprazole Sodium (Protonix) 40 mg PO DAILY@2100 [facility] Last Admin: 11/19/18 20:23 Dose: 40 mg Sertraline HCl (Zoloft) 50 mg PO DAILY [facility] Last Admin: 11/19/18 07:47 Dose: 50 mg Sodium Chloride (Saline Flush) 10 ml FLUSH ASDIRECTED PRN PRN Reason: Keep Vein Open Last Admin: 11/19/18 17:46 Dose: 10 ml Sodium Chloride (Saline Flush) 10 ml FLUSH Q12HR [facility] Last Admin: 11/19/18 19:21 Dose: 10 ml Tamsulosin HCl (Flomax) 0.4 mg PO DAILY@2100 [facility] Last Admin: 11/19/18 20:23 Dose: 0.4 mg Temazepam (Restoril) 15 mg PO BEDTIME PRN PRN Reason: Insomnia Last Admin: 11/19/18 21:26 Dose: 15 mg Warfarin Sodium (Coumadin) 7.5 mg PO DAILY@1800 [facility] Last Admin: 11/19/18 17:45 Dose: 7.5 mg Discontinued Medications Flecainide Acetate (Tambocor) 100 mg PO BID [facility] Lactated Ringer's (Ringers, Lactated) 1,000 mls @ 75 mls/hr IV ASDIRECTED [facility] Last Admin: 11/18/18 07:51 Dose: 75 mls/hr Azithromycin 500 mg/ Sodium (Chloride) 250 mls @ 250 mls/hr IV Q24H [facility] Stop: 11/19/18 17:59 Last Admin: 11/19/18 17:46 Dose: 250 mls/hr Metoprolol Tartrate (Lopressor) 50 mg PO BID [facility] Sertraline HCl (Zoloft) 50 mg PO DAILY@2100 [facility] Last Admin: 11/17/18 21:09 Dose: Not Given - Exam Quality Assessment: DVT Prophylaxis (coumadin) General: Alert, Oriented, Cooperative, No Acute Distress HEENT: Mucous Membr. Moist/[place] Neck: Trachea Midline, No JVD Lungs: Normal Respiratory Effort, Decreased Breath Sounds, Rhonchi Cardiovascular: Regular Rate, Regular Rhythm GI/Abdominal Exam: Soft, Non-Tender, No Distention (Male) Exam: Deferred Back Exam: Normal Inspection Extremities: Normal Inspection, Non-Tender Skin: Warm, Dry, Intact Neurological: No New Focal Deficit Psy/Mental Status: Alert, Normal Affect, Normal Mood - Problem List & Annotations (1) Pneumonia SNOMED Code(s): 613956673 Code(s): J18.9 - PNEUMONIA, UNSPECIFIED ORGANISM Status: Acute Current Visit: Yes Qualifiers: Pneumonia type: due to unspecified organism Laterality: left (2) Dehydration SNOMED Code(s): 34233701 Code(s): E86.0 - DEHYDRATION Status: Acute Current Visit: Yes (3) Diabetes SNOMED Code(s): 96870932 Code(s): E11.9 - TYPE 2 DIABETES MELLITUS WITHOUT COMPLICATIONS Status: Acute Current Visit: Yes Qualifiers: Diabetes mellitus type: type 2 Diabetes mellitus complication status: without complication (4) Atrial fibrillation SNOMED Code(s): 67551634 Code(s): I48.91 - UNSPECIFIED ATRIAL FIBRILLATION Status: Chronic Priority: Medium Current Visit: No Qualifiers: Atrial fibrillation type: paroxysmal Qualified Code(s): I48.0 - Paroxysmal atrial fibrillation Annotation/Comment:: Normally in sinus rhythm as he is today with current medical therapy. INRs have been therapeutic and stable usually around 2.0 (5) Hypertension SNOMED Code(s): 08636809 Code(s): I10 - ESSENTIAL (PRIMARY) HYPERTENSION Status: Chronic Priority : Medium Current Visit: No Qualifiers: Hypertension type: essential hypertension Qualified Code(s): I10 - Essential (primary) hypertension Annotation/Comment:: Blood pressure is under good control in the emergency room (6) Mixed anxiety depressive disorder SNOMED Code(s): 456763240 Code(s): F41.8 - OTHER SPECIFIED ANXIETY DISORDERS Status: Chronic Priority: Medium Current Visit: No Annotation/Comment:: Continue to observe closely by his regular providers (7) Peptic reflux disease SNOMED Code(s): 428221572 Code(s): K21.9 - GASTRO-ESOPHAGEAL REFLUX DISEASE WITHOUT ESOPHAGITIS Status: Chronic Priority: Medium Current Visit: No Annotation/Comment:: Stable by patient history (8) Sleep apnea SNOMED Code(s): 12489689 Code(s): G47.30 - SLEEP APNEA, UNSPECIFIED Status: Chronic Priority: Medium Current Visit: No Annotation/Comment:: Patient has been compliant with his CPAP - Problem List Review Problem List Initiated/Reviewed/Updated: Yes - My Orders Last 24 Hours: My Active Orders 11/19/18 18:00 Warfarin [Coumadin] 7.5 mg PO DAILY@1800 11/20/18 05:11 SEDIMENTATION RATE AUTO [HEME] Routine - Plan Plan:: 11/17/2018 Patient is admitted to inpatient services due to pneumonia, elevated lactic acid (will hold metformin), dehydration. Patient needing IV antibiotics and IV fluids and close monitoring of blood sugars due to his severity of his pneumonia. INR elevated, will hold coumadin and recheck INR in the morning. patient agreed to hospitalization in [place]. Discussed with Dr Bello. Recheck labs in the morning. Aliyah Robles,MACHINE CONTAINER W[employer]ER 11/18/18 Eugenia Calles MD Starting to feel a little bit better today. Still coughing. Coumadin on hold. Continue IV antibiotics. 11/19/18 Eugenia Calles MD He is feeling better but did spike elevated temperature today ~12:00 to 101.4* F. CRP still quite elevated. Continue IV antibiotics and inpatient status.
[2018-11-20] MEDS: Sodium Chloride 0.9% 10 ML Syringe FLUSH PRN ×3 (03:45→20:09)
[2018-11-20] MEDS: cefTAZidime 1 GM Vial IVPUSH SCH ×3 (03:45→20:02)
[2018-11-20 07:22] LABS: CHLORIDE,CL 105 mmol/L (98-107); SODIUM,NA 140 mmol/L (136-145)
[2018-11-20] MEDS: Acetaminophen 325 MG Tab PO PRN (07:23)
[2018-11-20] MEDS: Metoprolol Tartrate 50 MG Tab PO SCH ×2 (07:23→20:02)
[2018-11-20] MEDS: Sertraline 50 MG Tab PO SCH (07:24)
[2018-11-20] MEDS: Sodium Chloride 0.9% 10 ML Syringe FLUSH SCH ×2 (07:24→20:03)
[2018-11-20] MEDS: Flecainide 100 MG Tab PO SCH ×2 (07:24→20:02)
[2018-11-20] MEDS ORDERED: Melatonin 3 MG Tab PO PRN (16:18)
[2018-11-20] MEDS: Azithromycin 250 MG Tab PO SCH (17:15)
[2018-11-20] MEDS: Warfarin 2 MG Tab PO SCH (17:16)
[2018-11-20] MEDS: Pantoprazole 40 MG Tab.CR PO SCH (20:02)
[2018-11-20] MEDS: atorvaSTATin 10 MG Tab PO SCH (20:02)
[2018-11-20] MEDS: Tamsulosin 0.4 MG Cap.ER PO SCH (20:02)
--- NOTE | 2018-11-20 20:59 | PCM.PN ---
- General Info Date of Service: 11/20/18 Admission Dx/Problem (Free Text): Admission Diagnosis/Problem Admission Diagnosis/Problem Pneumonia Functional Status: Reports: Tolerating Diet, Ambulating - Review of Systems General: Reports: Malaise (improving) HEENT: Reports: No Symptoms Pulmonary: Reports: No Symptoms Cardiovascular: Reports: No Symptoms Gastrointestinal: Reports: No Symptoms Genitourinary: Reports: No Symptoms Musculoskeletal: Reports: No Symptoms Skin: Reports: No Symptoms Neurological: Reports: No Symptoms Psychiatric: Reports: No Symptoms - Patient Data Vitals - Most Recent: Last Vital Signs Temp 97.2 F 11/20/18 16:00 Pulse 65 11/20/18 20:02 Resp 16 11/20/18 16:00 BP 128/53 L 11/20/18 20:02 Pulse Ox 98 11/20/18 16:00 Weight - Most Recent: 311 lb 14.383 oz I&O - Last 24 Hours: Intake & Output 11/20/18 11/20/18 11/20/18 06:59 14:59 22:59 Intake Total 450 720 960 Balance 450 720 960 Lab Results Last 24 Hours: Laboratory Results - last 24 hr 11/20/18 11/20/18 11/20/18 Range/Units 06:45 06:45 06:45 WBC 5.0 (4.0-10.2) K/uL RBC 3.27 L (4.33-5.41) M/uL Hgb 10.3 L (13.1-16.8) g/dL Hct 30.1 L (39.0-49.0) % MCV 92.0 (84.0-98.0) fL MCH 31.5 (28.2-33.3) pg MCHC 34.2 (31.7-36.0) g/dL RDW 13.5 (11.2-14.1) % Plt Count 97 L (150-350) K/uL Neut % (Auto) 73.6 (45.0-80.0) % Lymph % (Auto) 10.5 (10.0-50.0) % [place] % (Auto) 13.9 (2.0-14.0) % Eos % (Auto) 1.8 (0.0-5.0) % Baso % (Auto) 0.2 (0.0-2.0) % Neut # (Auto) 3.66 (1.40-7.00) K/uL Lymph # (Auto) 0.52 (0.50-3.50) K/uL [place] # (Auto) 0.69 (0.00-1.00) K/uL Eos # (Auto) 0.09 (0.00-0.50) K/uL Baso # (Auto) 0.01 (0.00-0.20) K/uL ESR 109 H (0-20) mm/hr PT 20.9 H (9.5-12.0) SEC INR 1.9 Sodium 140 (136-145) mmol/L Potassium 4.0 (3.5-5.1) mmol/L Chloride 105 (98-107) mmol/L Carbon Dioxide 28.3 (21.0-32.0) mmol/L BUN 16 (7-18) mg/dL Creatinine 0.93 (0.51-1.17) mg/dL Est Cr Clr Drug Dosing 84.34 mL/min Estimated GFR (MDRD) > 60 mL/min Glucose 165 H (74-106) mg/dL POC Glucose (65-110) mg/dl Calcium 7.9 L (8.5-10.1) mg/dL Total Bilirubin 0.9 (0.2-1.0) mg/dL AST 49 H (15-37) U/L ALT 67 (12-78) U/L Alkaline Phosphatase 160 H (46-116) IU/L C-Reactive Protein 21.2 H (<=0.9) mg/dL Total Protein 6.1 L (6.4-8.2) g/dL Albumin 2.3 L (3.4-5.0) g/dL 11/20/18 11/20/18 Range/Units 06:59 17:30 WBC (4.0-10.2) K/uL RBC (4.33-5.41) M/uL Hgb (13.1-16.8) g/dL Hct (39.0-49.0) % MCV (84.0-98.0) fL MCH (28.2-33.3) pg MCHC (31.7-36.0) g/dL RDW (11.2-14.1) % Plt Count (150-350) K/uL Neut % (Auto) (45.0-80.0) % Lymph % (Auto) (10.0-50.0) % [place] % (Auto) (2.0-14.0) % Eos % (Auto) (0.0-5.0) % Baso % (Auto) (0.0-2.0) % Neut # (Auto) (1.40-7.00) K/uL Lymph # (Auto) (0.50-3.50) K/uL [place] # (Auto) (0.00-1.00) K/uL Eos # (Auto) (0.00-0.50) K/uL Baso # (Auto) (0.00-0.20) K/uL ESR (0-20) mm/hr PT (9.5-12.0) SEC INR Sodium (136-145) mmol/L Potassium (3.5-5.1) mmol/L Chloride (98-107) mmol/L Carbon Dioxide (21.0-32.0) mmol/L BUN (7-18) mg/dL Creatinine (0.51-1.17) mg/dL Est Cr Clr Drug Dosing mL/min Estimated GFR (MDRD) mL/min Glucose (74-106) mg/dL POC Glucose 149 H 150 H (65-110) mg/dl Calcium (8.5-10.1) mg/dL Total Bilirubin (0.2-1.0) mg/dL AST (15-37) U/L ALT (12-78) U/L Alkaline Phosphatase (46-116) IU/L C-Reactive Protein (<=0.9) mg/dL Total Protein (6.4-8.2) g/dL Albumin (3.4-5.0) g/dL Kaden Results Last 24 Hours: Microbiology 11/17/18 17:10 Aerobic Blood Culture - Preliminary Blood - Venous - Lab Draw NO GROWTH AFTER 3 DAYS Anaerobic Blood Culture - Preliminary NO GROWTH AFTER 3 DAYS 11/17/18 17:00 Aerobic Blood Culture - Preliminary Blood - Venous NO GROWTH AFTER 3 DAYS Anaerobic Blood Culture - Preliminary NO GROWTH AFTER 3 DAYS 11/18/18 05:30 Urine Culture - Final Urine, Bladder NO GROWTH AFTER 2 DAYS Med Orders - Current: Current Medications Acetaminophen (Tylenol) 650 mg PO Q4H PRN PRN Reason: Pain (Mild 1-3)/fever Last Admin: 11/20/18 07:23 Dose: 650 mg Albuterol/Ipratropium (Duoneb 3.0-0.5 Mg/3 Ml) 3 ml NEB Q4H PRN PRN Reason: Dyspnea Atorvastatin Calcium (Lipitor) 10 mg PO BEDTIME [facility] Last Admin: 11/20/18 20:02 Dose: 10 mg Azithromycin (Zithromax) 500 mg PO DAILY [facility] Last Admin: 11/20/18 17:15 Dose: 500 mg Ceftazidime (Fortaz) 1 gm IVPUSH Q8H [facility] Last Admin: 11/20/18 20:02 Dose: 1 gm Flecainide Acetate (Tambocor) 100 mg PO BID@0800,1999 [facility] Last Admin: 11/20/18 20:02 Dose: 100 mg Guaifenesin (Mucinex) 600 mg PO TID PRN PRN Reason: Cough Melatonin (Melatonin) 3 mg PO BEDTIME PRN PRN Reason: Insomnia Last Admin: 11/20/18 20:07 Dose: 3 mg Metoprolol Tartrate (Lopressor) 50 mg PO BID@0800,2000 [facility] Last Admin: 11/20/18 20:02 Dose: 50 mg Pantoprazole Sodium (Protonix) 40 mg PO DAILY@2100 [facility] Last Admin: 11/20/18 20:02 Dose: 40 mg Sertraline HCl (Zoloft) 50 mg PO DAILY [facility] Last Admin: 11/20/18 07:24 Dose: 50 mg Sodium Chloride (Saline Flush) 10 ml FLUSH ASDIRECTED PRN PRN Reason: Keep Vein Open Last Admin: 11/20/18 20:09 Dose: 10 ml Sodium Chloride (Saline Flush) 10 ml FLUSH Q12HR [facility] Last Admin: 11/20/18 20:03 Dose: 10 ml Tamsulosin HCl (Flomax) 0.4 mg PO DAILY@2100 [facility] Last Admin: 11/20/18 20:02 Dose: 0.4 mg Warfarin Sodium (Coumadin) 7.5 mg PO DAILY@1800 [facility] Last Admin: 11/20/18 17:16 Dose: 7.5 mg Discontinued Medications Flecainide Acetate (Tambocor) 100 mg PO BID [facility] Lactated Ringer's (Ringers, Lactated) 1,000 mls @ 75 mls/hr IV ASDIRECTED [facility] Last Admin: 11/18/18 07:51 Dose: 75 mls/hr Azithromycin 500 mg/ Sodium (Chloride) 250 mls @ 250 mls/hr IV Q24H [facility] Stop: 11/19/18 17:59 Last Admin: 11/19/18 17:46 Dose: 250 mls/hr Metoprolol Tartrate (Lopressor) 50 mg PO BID [facility] Sertraline HCl (Zoloft) 50 mg PO DAILY@2100 [facility] Last Admin: 11/17/18 21:09 Dose: Not Given Temazepam (Restoril) 15 mg PO BEDTIME PRN PRN Reason: Insomnia Last Admin: 11/19/18 21:26 Dose: 15 mg - Exam Quality Assessment: DVT Prophylaxis (coumadin) General: Alert, Cooperative HEENT: EOMI, Mucous Membr. Moist/[employer] Neck: Trachea Midline, No JVD Lungs: Normal Respiratory Effort, Decreased Breath Sounds (LLL but improved) Cardiovascular: Regular Rate, Regular Rhythm GI/Abdominal Exam: Soft, Non-Tender, No Distention (Male) Exam: Deferred Back Exam: Normal Inspection Extremities: Normal Inspection Skin: Warm, Dry, Intact Neurological: No New Focal Deficit Psy/Mental Status: Alert, Normal Affect, Normal Mood - Problem List & Annotations (1) Pneumonia SNOMED Code(s): 304561700 Code(s): J18.9 - PNEUMONIA, UNSPECIFIED ORGANISM Status: Acute Current Visit: Yes Qualifiers: Pneumonia type: due to unspecified organism Laterality: left (2) Dehydration SNOMED Code(s): 53471975 Code(s): E86.0 - DEHYDRATION Status: Acute Current Visit: Yes (3) Diabetes SNOMED Code(s): 13225878 Code(s): E11.9 - TYPE 2 DIABETES MELLITUS WITHOUT COMPLICATIONS Status: Acute Current Visit: Yes Qualifiers: Diabetes mellitus type: type 2 Diabetes mellitus complication status: without complication (4) Atrial fibrillation SNOMED Code(s): 58114276 Code(s): I48.91 - UNSPECIFIED ATRIAL FIBRILLATION Status: Chronic Priority: Medium Current Visit: No Qualifiers: Atrial fibrillation type: paroxysmal Qualified Code(s): I48.0 - Paroxysmal atrial fibrillation Annotation/Comment:: Normally in sinus rhythm as he is today with current medical therapy. INRs have been therapeutic and stable usually around 2.0 (5) Hypertension SNOMED Code(s): 49062200 Code(s): I10 - ESSENTIAL (PRIMARY) HYPERTENSION Status: Chronic Priority : Medium Current Visit: No Qualifiers: Hypertension type: essential hypertension Qualified Code(s): I10 - Essential (primary) hypertension Annotation/Comment:: Blood pressure is under good control in the emergency room (6) Mixed anxiety depressive disorder SNOMED Code(s): 181109740 Code(s): F41.8 - OTHER SPECIFIED ANXIETY DISORDERS Status: Chronic Priority: Medium Current Visit: No Annotation/Comment:: Continue to observe closely by his regular providers (7) Peptic reflux disease SNOMED Code(s): 649882408 Code(s): K21.9 - GASTRO-ESOPHAGEAL REFLUX DISEASE WITHOUT ESOPHAGITIS Status: Chronic Priority: Medium Current Visit: No Annotation/Comment:: Stable by patient history (8) Sleep apnea SNOMED Code(s): 72151231 Code(s): G47.30 - SLEEP APNEA, UNSPECIFIED Status: Chronic Priority: Medium Current Visit: No Annotation/Comment:: Patient has been compliant with his CPAP - Problem List Review Problem List Initiated/Reviewed/Updated: Yes - My Orders Last 24 Hours: My Active Orders 11/20/18 16:18 Melatonin 3 mg PO BEDTIME PRN 11/21/18 05:11 BLOOD GAS VENOUS [BG] Routine - Plan Plan:: 11/17/2018 Patient is admitted to inpatient services due to pneumonia, elevated lactic acid (will hold metformin), dehydration. Patient needing IV antibiotics and IV fluids and close monitoring of blood sugars due to his severity of his pneumonia. INR elevated, will hold coumadin and recheck INR in the morning. patient agreed to hospitalization in [place]. Discussed with Dr Bello. Recheck labs in the morning. Aliyah Robles,SUPERVISORY FORESTER 11/18/18 Eugenia Calles MD Starting to feel a little bit better today. Still coughing. Coumadin on hold. Continue IV antibiotics. 11/19/18 Eugenia Calles MD He is feeling better but did spike elevated temperature today ~12:00 to 101.4* F. CRP still quite elevated. Continue IV antibiotics and inpatient status. 11/20/18 Eugenia Calles MD So far today no elevated temperature. He is feeling better. CRP still markedly elevated. Continue IV antibiotics and impatient status.
[2018-11-21] MEDS: cefTAZidime 1 GM Vial IVPUSH SCH ×2 (02:09→10:32)
[2018-11-21] MEDS: Sodium Chloride 0.9% 10 ML Syringe FLUSH PRN ×2 (02:09→10:31)
[2018-11-21 07:03] LABS: O2 DELIVERY DEVICE ROOM AIR
[2018-11-21 07:15] LABS: BASE EXCESS VENOUS 1 mmol/L ((-2)-3); BICARBONATE,VENOUS 26 mmol/L (23-28); O2 SATURATION VENOUS 86 %; PCO2 VENOUS 40 mmHG (41-51); PH,VENOUS 7.42 (7.31-7.41); PO2 VENOUS 51 mmHG
[2018-11-21 07:28] LABS: CHLORIDE,CL 105 mmol/L (98-107); SODIUM,NA 140 mmol/L (136-145)
[2018-11-21] MEDS: Metoprolol Tartrate 50 MG Tab PO SCH (07:58)
[2018-11-21] MEDS: Sertraline 50 MG Tab PO SCH (07:59)
[2018-11-21] MEDS: Sodium Chloride 0.9% 10 ML Syringe FLUSH SCH (07:59)
[2018-11-21] MEDS: Azithromycin 250 MG Tab PO SCH (07:59)
[2018-11-21] MEDS: Flecainide 100 MG Tab PO SCH (07:59)
[2018-11-21 12:42] VITALS: BP 121/49
--- NOTE | 2018-11-21 15:21 | PCM.PN ---
- General Info Date of Service: 11/21/18 Admission Dx/Problem (Free Text): Admission Diagnosis/Problem Admission Diagnosis/Problem Pneumonia Functional Status: Reports: Tolerating Diet, Ambulating, Urinating - Review of Systems General: Reports: No Symptoms HEENT: Reports: No Symptoms Pulmonary: Reports: No Symptoms Cardiovascular: Reports: No Symptoms Gastrointestinal: Reports: No Symptoms Genitourinary: Reports: No Symptoms Musculoskeletal: Reports: No Symptoms Skin: Reports: No Symptoms Neurological: Reports: No Symptoms Psychiatric: Reports: No Symptoms - Patient Data Vitals - Most Recent: Last Vital Signs Temp 96.6 F 11/21/18 12:00 Pulse 58 L 11/21/18 12:00 Resp 17 11/21/18 12:00 BP 121/49 L 11/21/18 12:00 Pulse Ox 100 11/21/18 12:00 Weight - Most Recent: 311 lb 14.383 oz I&O - Last 24 Hours: Intake & Output 11/21/18 11/21/18 11/21/18 06:59 14:59 22:59 Intake Total 200 960 Balance 200 960 Lab Results Last 24 Hours: Laboratory Results - last 24 hr 11/20/18 11/21/18 11/21/18 Range/Units 17:30 06:58 06:58 WBC 4.9 (4.0-10.2) K/uL RBC 3.18 L (4.33-5.41) M/uL Hgb 9.9 L (13.1-16.8) g/dL Hct 29.4 L (39.0-49.0) % MCV 92.5 (84.0-98.0) fL MCH 31.1 (28.2-33.3) pg MCHC 33.7 (31.7-36.0) g/dL RDW 13.5 (11.2-14.1) % Plt Count 114 L (150-350) K/uL Neut % (Auto) 75.2 (45.0-80.0) % Lymph % (Auto) 10.6 (10.0-50.0) % [place] % (Auto) 12.0 (2.0-14.0) % Eos % (Auto) 2.0 (0.0-5.0) % Baso % (Auto) 0.2 (0.0-2.0) % Neut # (Auto) 3.70 (1.40-7.00) K/uL Lymph # (Auto) 0.52 (0.50-3.50) K/uL [place] # (Auto) 0.59 (0.00-1.00) K/uL Eos # (Auto) 0.10 (0.00-0.50) K/uL Baso # (Auto) 0.01 (0.00-0.20) K/uL PT (9.5-12.0) SEC INR VBG pH (7.31-7.41) VBG pCO2 (41-51) mmHG VBG pO2 mmHG VBG HCO3 (23-28) mmol/L VBG Total CO2 mmol/L VBG O2 Saturation % VBG Base Excess ((-2)-3) mmol/L O2 Delivery Device Sodium 140 (136-145) mmol/L Potassium 4.0 (3.5-5.1) mmol/L Chloride 105 (98-107) mmol/L Carbon Dioxide 27.8 (21.0-32.0) mmol/L BUN 13 (7-18) mg/dL Creatinine 0.78 (0.51-1.17) mg/dL Est Cr Clr Drug Dosing 100.15 mL/min Estimated GFR (MDRD) > 60 mL/min Glucose 162 H (74-106) mg/dL POC Glucose 150 H (65-110) mg/dl Calcium 7.8 L (8.5-10.1) mg/dL Total Bilirubin 0.9 (0.2-1.0) mg/dL AST 55 H (15-37) U/L ALT 85 H (12-78) U/L Alkaline Phosphatase 203 H (46-116) IU/L C-Reactive Protein 17.9 H (<=0.9) mg/dL Total Protein 5.8 L (6.4-8.2) g/dL Albumin 2.1 L (3.4-5.0) g/dL 11/21/18 11/21/18 11/21/18 Range/Units 06:58 06:58 07:25 WBC (4.0-10.2) K/uL RBC (4.33-5.41) M/uL Hgb (13.1-16.8) g/dL Hct (39.0-49.0) % MCV (84.0-98.0) fL MCH (28.2-33.3) pg MCHC (31.7-36.0) g/dL RDW (11.2-14.1) % Plt Count (150-350) K/uL Neut % (Auto) (45.0-80.0) % Lymph % (Auto) (10.0-50.0) % [place] % (Auto) (2.0-14.0) % Eos % (Auto) (0.0-5.0) % Baso % (Auto) (0.0-2.0) % Neut # (Auto) (1.40-7.00) K/uL Lymph # (Auto) (0.50-3.50) K/uL Over[place] # (Auto) (0.00-1.00) K/uL Eos # (Auto) (0.00-0.50) K/uL Baso # (Auto) (0.00-0.20) K/uL PT 23.6 H (9.5-12.0) SEC INR 2.2 VBG pH 7.42 H (7.31-7.41) VBG pCO2 40 L (41-51) mmHG VBG pO2 51 mmHG VBG HCO3 26 (23-28) mmol/L VBG Total CO2 27 mmol/L VBG O2 Saturation 86 % VBG Base Excess 1 ((-2)-3) mmol/L O2 Delivery Device Room air Sodium (136-145) mmol/L Potassium (3.5-5.1) mmol/L Chloride (98-107) mmol/L Carbon Dioxide (21.0-32.0) mmol/L BUN (7-18) mg/dL Creatinine (0.51-1.17) mg/dL Est Cr Clr Drug Dosing mL/min Estimated GFR (MDRD) mL/min Glucose (74-106) mg/dL POC Glucose 166 H (65-110) mg/dl Calcium (8.5-10.1) mg/dL Total Bilirubin (0.2-1.0) mg/dL AST (15-37) U/L ALT (12-78) U/L Alkaline Phosphatase (46-116) IU/L C-Reactive Protein (<=0.9) mg/dL Total Protein (6.4-8.2) g/dL Albumin (3.4-5.0) g/dL Kaden Results Last 24 Hours: Microbiology 11/18/18 07:15 Mycoplasma Serology - Final Blood 11/17/18 17:10 Aerobic Blood Culture - Preliminary Blood - Venous - Lab Draw NO GROWTH AFTER 3 DAYS Anaerobic Blood Culture - Preliminary NO GROWTH AFTER 3 DAYS 11/17/18 17:00 Aerobic Blood Culture - Preliminary Blood - Venous NO GROWTH AFTER 3 DAYS Anaerobic Blood Culture - Preliminary NO GROWTH AFTER 3 DAYS Med Orders - Current: Current Medications Acetaminophen (Tylenol) 650 mg PO Q4H PRN PRN Reason: Pain (Mild 1-3)/fever Last Admin: 11/20/18 07:23 Dose: 650 mg Albuterol/Ipratropium (Duoneb 3.0-0.5 Mg/3 Ml) 3 ml NEB Q4H PRN PRN Reason: Dyspnea Atorvastatin Calcium (Lipitor) 10 mg PO BEDTIME [facility] Last Admin: 11/20/18 20:02 Dose: 10 mg Azithromycin (Zithromax) 500 mg PO DAILY [facility] Last Admin: 11/21/18 07:59 Dose: 500 mg Ceftazidime (Fortaz) 1 gm IVPUSH Q8H [facility] Last Admin: 11/21/18 10:32 Dose: 1 gm Flecainide Acetate (Tambocor) 100 mg PO BID@799,1999 [facility] Last Admin: 11/21/18 07:59 Dose: 100 mg Guaifenesin (Mucinex) 600 mg PO TID PRN PRN Reason: Cough Melatonin (Melatonin) 3 mg PO BEDTIME PRN PRN Reason: Insomnia Last Admin: 11/20/18 20:07 Dose: 3 mg Metoprolol Tartrate (Lopressor) 50 mg PO BID@0800,1999 [facility] Last Admin: 11/21/18 07:58 Dose: 50 mg Pantoprazole Sodium (Protonix) 40 mg PO DAILY@2099 [facility] Last Admin: 11/20/18 20:02 Dose: 40 mg Sertraline HCl (Zoloft) 50 mg PO DAILY [facility] Last Admin: 11/21/18 07:59 Dose: 50 mg Sodium Chloride (Saline Flush) 10 ml FLUSH ASDIRECTED PRN PRN Reason: Keep Vein Open Last Admin: 11/21/18 10:31 Dose: 10 ml Sodium Chloride (Saline Flush) 10 ml FLUSH Q12HR [facility] Last Admin: 11/21/18 07:59 Dose: 10 ml Tamsulosin HCl (Flomax) 0.4 mg PO DAILY@2100 [facility] Last Admin: 11/20/18 20:02 Dose: 0.4 mg Warfarin Sodium (Coumadin) 7.5 mg PO DAILY@1800 [facility] Discontinued Medications Flecainide Acetate (Tambocor) 100 mg PO BID [facility] Lactated Ringer's (Ringers, Lactated) 1,000 mls @ 75 mls/hr IV ASDIRECTED [facility] Last Admin: 11/18/18 07:51 Dose: 75 mls/hr Azithromycin 500 mg/ Sodium (Chloride) 250 mls @ 250 mls/hr IV Q24H [facility] Stop: 11/19/18 17:59 Last Admin: 11/19/18 17:46 Dose: 250 mls/hr Metoprolol Tartrate (Lopressor) 50 mg PO BID [facility] Sertraline HCl (Zoloft) 50 mg PO DAILY@2100 [facility] Last Admin: 11/17/18 21:09 Dose: Not Given Temazepam (Restoril) 15 mg PO BEDTIME PRN PRN Reason: Insomnia Last Admin: 11/19/18 21:26 Dose: 15 mg Warfarin Sodium (Coumadin) 7.5 mg PO DAILY@1800 [facility] Last Admin: 11/20/18 17:16 Dose: 7.5 mg - Exam Quality Assessment: DVT Prophylaxis (coumadin) HEENT: Mucous Membr. Moist/[place] Neck: Trachea Midline, No JVD Lungs: Normal Respiratory Effort, Decreased Breath Sounds (LLL but clearing) Cardiovascular: Regular Rate, Regular Rhythm GI/Abdominal Exam: Soft, Non-Tender, No Distention (Male) Exam: Deferred Back Exam: Normal Inspection Extremities: Normal Inspection, Non-Tender Skin: Warm, Dry, Intact Neurological: No New Focal Deficit Psy/Mental Status: Alert, Normal Affect, Normal Mood - Problem List & Annotations (1) Pneumonia SNOMED Code(s): 822824174 Code(s): J18.9 - PNEUMONIA, UNSPECIFIED ORGANISM Status: Acute Current Visit: Yes Qualifiers: Pneumonia type: due to unspecified organism Laterality: left (2) Dehydration SNOMED Code(s): 64836947 Code(s): E86.0 - DEHYDRATION Status: Acute Current Visit: Yes (3) Diabetes SNOMED Code(s): 39740683 Code(s): E11.9 - TYPE 2 DIABETES MELLITUS WITHOUT COMPLICATIONS Status: Acute Current Visit: Yes Qualifiers: Diabetes mellitus type: type 2 Diabetes mellitus complication status: without complication (4) Atrial fibrillation SNOMED Code(s): 25082195 Code(s): I48.91 - UNSPECIFIED ATRIAL FIBRILLATION Status: Chronic Priority: Medium Current Visit: No Qualifiers: Atrial fibrillation type: paroxysmal Qualified Code(s): I48.0 - Paroxysmal atrial fibrillation Annotation/Comment:: Normally in sinus rhythm as he is today with current medical therapy. INRs have been therapeutic and stable usually around 2.0 (5) Hypertension SNOMED Code(s): 65488714 Code(s): I10 - ESSENTIAL (PRIMARY) HYPERTENSION Status: Chronic Priority : Medium Current Visit: No Qualifiers: Hypertension type: essential hypertension Qualified Code(s): I10 - Essential (primary) hypertension Annotation/Comment:: Blood pressure is under good control in the emergency room (6) Mixed anxiety depressive disorder SNOMED Code(s): 308922163 Code(s): F41.8 - OTHER SPECIFIED ANXIETY DISORDERS Status: Chronic Priority: Medium Current Visit: No Annotation/Comment:: Continue to observe closely by his regular providers (7) Peptic reflux disease SNOMED Code(s): 961196545 Code(s): K21.9 - GASTRO-ESOPHAGEAL REFLUX DISEASE WITHOUT ESOPHAGITIS Status: Chronic Priority: Medium Current Visit: No Annotation/Comment:: Stable by patient history (8) Sleep apnea SNOMED Code(s): 98762749 Code(s): G47.30 - SLEEP APNEA, UNSPECIFIED Status: Chronic Priority: Medium Current Visit: No Annotation/Comment:: Patient has been compliant with his CPAP - Problem List Review Problem List Initiated/Reviewed/Updated: Yes - My Orders Last 24 Hours: My Active Orders 11/20/18 16:18 Melatonin 3 mg PO BEDTIME PRN 11/21/18 15:17 Ready for Discharge [RC] PER UNIT ROUTINE 11/21/18 15:18 Discontinue Saline Lock [Peripheral IV Discontinue] [OM.PC] Routine 11/21/18 18:00 Warfarin [Coumadin] 7.5 mg PO DAILY@1800 - Plan Plan:: 11/17/2018 Patient is admitted to inpatient services due to pneumonia, elevated lactic acid (will hold metformin), dehydration. Patient needing IV antibiotics and IV fluids and close monitoring of blood sugars due to his severity of his pneumonia. INR elevated, will hold coumadin and recheck INR in the morning. patient agreed to hospitalization in [place]. Discussed with Dr Bello. Recheck labs in the morning. Aliyah Robles,LACE FINISHER 11/18/18 Eugenia Calles MD Starting to feel a little bit better today. Still coughing. Coumadin on hold. Continue IV antibiotics. 11/19/18 Eugenia Calles MD He is feeling better but did spike elevated temperature today ~12:00 to 101.4* F. CRP still quite elevated. Continue IV antibiotics and inpatient status. 11/20/18 Eugenia Calles MD So far today no elevated temperature. He is feeling better. CRP still markedly elevated. Continue IV antibiotics and impatient status. 11/21/18 Eugenia Calles MD Feeling better. Minimal cough. CRP finally starting to decrease although still elevated. Discussed with him. He is clinically improved and stable for discharge to home and continue on oral antibiotics. Follow up in the clinic.
--- NOTE | 2018-11-21 15:22 | PCM.DCSUM1 ---
Discharge Summary - Hospital Course Diagnosis: Stroke: No - Discharge Data Discharge Date: 11/21/18 Discharge Disposition: Home, Self-Care 01 Condition: Good - Discharge Diagnosis/Problem(s) (1) Pneumonia SNOMED Code(s): 619008158 ICD Code: J18.9 - PNEUMONIA, UNSPECIFIED ORGANISM Status: Acute Current Visit: Yes Qualifiers: Pneumonia type: due to unspecified organism Laterality: left (2) Dehydration SNOMED Code(s): 16205175 ICD Code: E86.0 - DEHYDRATION Status: Acute Current Visit: Yes (3) Diabetes SNOMED Code(s): 20253740 ICD Code: E11.9 - TYPE 2 DIABETES MELLITUS WITHOUT COMPLICATIONS Status: Acute Current Visit: Yes Qualifiers: Diabetes mellitus type: type 2 Diabetes mellitus complication status: without complication (4) Atrial fibrillation SNOMED Code(s): 73138526 ICD Code: I48.91 - UNSPECIFIED ATRIAL FIBRILLATION Status: Chronic Priority: Medium Current Visit: No Problem Details: Normally in sinus rhythm as he is today with current medical therapy. INRs have been therapeutic and stable usually around 2.0 Qualifiers: Atrial fibrillation type: paroxysmal Qualified Code(s): I48.0 - Paroxysmal atrial fibrillation (5) Hypertension SNOMED Code(s): 64544715 ICD Code: I10 - ESSENTIAL (PRIMARY) HYPERTENSION Status: Chronic Priority : Medium Current Visit: No Problem Details: Blood pressure is under good control in the emergency room Qualifiers: Hypertension type: essential hypertension Qualified Code(s): I10 - Essential (primary) hypertension (6) Mixed anxiety depressive disorder SNOMED Code(s): 895621002 ICD Code: F41.8 - OTHER SPECIFIED ANXIETY DISORDERS Status: Chronic Priority: Medium Current Visit: No Problem Details: Continue to observe closely by his regular providers (7) Peptic reflux disease SNOMED Code(s): 253641534 ICD Code: K21.9 - GASTRO-ESOPHAGEAL REFLUX DISEASE WITHOUT ESOPHAGITIS Status: Chronic Priority: Medium Current Visit: No Problem Details: Stable by patient history (8) Sleep apnea SNOMED Code(s): 79303663 ICD Code: G47.30 - SLEEP APNEA, UNSPECIFIED Status: Chronic Priority: Medium Current Visit: No Problem Details: Patient has been compliant with his CPAP - Patient Instructions Diet: Diabetic Diet Activity: As Tolerated (Take it easy for the next week) Driving: Do Not Drive (today) Showering/Bathing: May Shower Notify Provider of: Fever Other/Special Instructions: Call [facility] and schedule an appointment within the next week to see Aliyah and have your blood rechecked at the clinic. - Discharge Plan *PRESCRIPTION DRUG MONITORING PROGRAM REVIEWED*: Not Applicable *COPY OF PRESCRIPTION DRUG MONITORING REPORT IN PATIENT MIGUELINA: Not Applicable Prescriptions/Med Rec: Cefuroxime Axetil [Ceftin] 500 mg PO BID #15 tablet Home Medications: Home Meds Warfarin [Coumadin] 7.5 mg PO DAILY@1800 10/05/15 [History] metFORMIN HCl [Metformin HCl] 1,000 mg PO BID 10/05/15 [History] Flecainide Acetate 100 mg PO BID 10/06/15 [History] Metoprolol Tartrate 50 mg PO BID 10/06/15 [History] Pantoprazole Sodium 40 mg PO DAILY@209910/06/15 [History] Sertraline [Zoloft] 50 mg PO DAILY@209910/06/15 [History] atorvaSTATin [Lipitor] 10 mg PO BEDTIME 10/06/15 [History] Tamsulosin HCl 0.4 mg PO DAILY@209911/17/18 [History] Cefuroxime Axetil [Ceftin] 500 mg PO BID #15 tablet 11/21/18 [Rx] Oxygen Therapy Mode: Room Air - Discharge Summary/Plan Comment DC Time >30 min.: No - Patient Data Vitals - Most Recent: Last Vital Signs Temp 96.6 F 11/21/18 12:00 Pulse 58 L 11/21/18 12:00 Resp 17 11/21/18 12:00 BP 121/49 L 11/21/18 12:00 Pulse Ox 100 11/21/18 12:00 Weight - Most Recent: 311 lb 14.383 oz I&O - Last 24 hours: Intake & Output 11/21/18 11/21/18 11/21/18 06:59 14:59 22:59 Intake Total 200 960 Balance 200 960 Lab Results - Last 24 hrs: Laboratory Results - last 24 hr 11/20/18 11/21/18 11/21/18 Range/Units 17:30 06:58 06:58 WBC 4.9 (4.0-10.2) K/uL RBC 3.18 L (4.33-5.41) M/uL Hgb 9.9 L (13.1-16.8) g/dL Hct 29.4 L (39.0-49.0) % MCV 92.5 (84.0-98.0) fL MCH 31.1 (28.2-33.3) pg MCHC 33.7 (31.7-36.0) g/dL RDW 13.5 (11.2-14.1) % Plt Count 114 L (150-350) K/uL Neut % (Auto) 75.2 (45.0-80.0) % Lymph % (Auto) 10.6 (10.0-50.0) % [place] % (Auto) 12.0 (2.0-14.0) % Eos % (Auto) 2.0 (0.0-5.0) % Baso % (Auto) 0.2 (0.0-2.0) % Neut # (Auto) 3.70 (1.40-7.00) K/uL Lymph # (Auto) 0.52 (0.50-3.50) K/uL [place]inger # (Auto) 0.59 (0.00-1.00) K/uL Eos # (Auto) 0.10 (0.00-0.50) K/uL Baso # (Auto) 0.01 (0.00-0.20) K/uL PT (9.5-12.0) SEC INR VBG pH (7.31-7.41) VBG pCO2 (41-51) mmHG VBG pO2 mmHG VBG HCO3 (23-28) mmol/L VBG Total CO2 mmol/L VBG O2 Saturation % VBG Base Excess ((-2)-3) mmol/L O2 Delivery Device Sodium 140 (136-145) mmol/L Potassium 4.0 (3.5-5.1) mmol/L Chloride 105 (98-107) mmol/L Carbon Dioxide 27.8 (21.0-32.0) mmol/L BUN 13 (7-18) mg/dL Creatinine 0.78 (0.51-1.17) mg/dL Est Cr Clr Drug Dosing 100.15 mL/min Estimated GFR (MDRD) > 60 mL/min Glucose 162 H (74-106) mg/dL POC Glucose 150 H (65-110) mg/dl Calcium 7.8 L (8.5-10.1) mg/dL Total Bilirubin 0.9 (0.2-1.0) mg/dL AST 55 H (15-37) U/L ALT 85 H (12-78) U/L Alkaline Phosphatase 203 H (46-116) IU/L C-Reactive Protein 17.9 H (<=0.9) mg/dL Total Protein 5.8 L (6.4-8.2) g/dL Albumin 2.1 L (3.4-5.0) g/dL 11/21/18 11/21/18 11/21/18 Range/Units 06:58 06:58 07:25 WBC (4.0-10.2) K/uL RBC (4.33-5.41) M/uL Hgb (13.1-16.8) g/dL Hct (39.0-49.0) % MCV (84.0-98.0) fL MCH (28.2-33.3) pg MCHC (31.7-36.0) g/dL RDW (11.2-14.1) % Plt Count (150-350) K/uL Neut % (Auto) (45.0-80.0) % Lymph % (Auto) (10.0-50.0) % [place]inger % (Auto) (2.0-14.0) % Eos % (Auto) (0.0-5.0) % Baso % (Auto) (0.0-2.0) % Neut # (Auto) (1.40-7.00) K/uL Lymph # (Auto) (0.50-3.50) K/uL [place]inger # (Auto) (0.00-1.00) K/uL Eos # (Auto) (0.00-0.50) K/uL Baso # (Auto) (0.00-0.20) K/uL PT 23.6 H (9.5-12.0) SEC INR 2.2 VBG pH 7.42 H (7.31-7.41) VBG pCO2 40 L (41-51) mmHG VBG pO2 51 mmHG VBG HCO3 26 (23-28) mmol/L VBG Total CO2 27 mmol/L VBG O2 Saturation 86 % VBG Base Excess 1 ((-2)-3) mmol/L O2 Delivery Device Room air Sodium (136-145) mmol/L Potassium (3.5-5.1) mmol/L Chloride (98-107) mmol/L Carbon Dioxide (21.0-32.0) mmol/L BUN (7-18) mg/dL Creatinine (0.51-1.17) mg/dL Est Cr Clr Drug Dosing mL/min Estimated GFR (MDRD) mL/min Glucose (74-106) mg/dL POC Glucose 166 H (65-110) mg/dl Calcium (8.5-10.1) mg/dL Total Bilirubin (0.2-1.0) mg/dL AST (15-37) U/L ALT (12-78) U/L Alkaline Phosphatase (46-116) IU/L C-Reactive Protein (<=0.9) mg/dL Total Protein (6.4-8.2) g/dL Albumin (3.4-5.0) g/dL LISSA Results - Last 24 hrs: Microbiology 11/18/18 07:15 Mycoplasma Serology - Final Blood 11/17/18 17:10 Aerobic Blood Culture - Preliminary Blood - Venous - Lab Draw NO GROWTH AFTER 3 DAYS Anaerobic Blood Culture - Preliminary NO GROWTH AFTER 3 DAYS 11/17/18 17:00 Aerobic Blood Culture - Preliminary Blood - Venous NO GROWTH AFTER 3 DAYS Anaerobic Blood Culture - Preliminary NO GROWTH AFTER 3 DAYS Med Orders - Current: Current Medications Acetaminophen (Tylenol) 650 mg PO Q4H PRN PRN Reason: Pain (Mild 1-3)/fever Last Admin: 11/20/18 07:23 Dose: 650 mg Albuterol/Ipratropium (Duoneb 3.0-0.5 Mg/3 Ml) 3 ml NEB Q4H PRN PRN Reason: Dyspnea Atorvastatin Calcium (Lipitor) 10 mg PO BEDTIME [facility] Last Admin: 11/20/18 20:02 Dose: 10 mg Azithromycin (Zithromax) 500 mg PO DAILY [facility] Last Admin: 11/21/18 07:59 Dose: 500 mg Ceftazidime (Fortaz) 1 gm IVPUSH Q8H [facility] Last Admin: 11/21/18 10:32 Dose: 1 gm Flecainide Acetate (Tambocor) 100 mg PO BID@0800,2000 [facility] Last Admin: 11/21/18 07:59 Dose: 100 mg Guaifenesin (Mucinex) 600 mg PO TID PRN PRN Reason: Cough Melatonin (Melatonin) 3 mg PO BEDTIME PRN PRN Reason: Insomnia Last Admin: 11/20/18 20:07 Dose: 3 mg Metoprolol Tartrate (Lopressor) 50 mg PO BID@0800,1999 [facility] Last Admin: 11/21/18 07:58 Dose: 50 mg Pantoprazole Sodium (Protonix) 40 mg PO DAILY@2100 [facility] Last Admin: 11/20/18 20:02 Dose: 40 mg Sertraline HCl (Zoloft) 50 mg PO DAILY [facility] Last Admin: 11/21/18 07:59 Dose: 50 mg Sodium Chloride (Saline Flush) 10 ml FLUSH ASDIRECTED PRN PRN Reason: Keep Vein Open Last Admin: 11/21/18 10:31 Dose: 10 ml Sodium Chloride (Saline Flush) 10 ml FLUSH Q12HR [facility] Last Admin: 11/21/18 07:59 Dose: 10 ml Tamsulosin HCl (Flomax) 0.4 mg PO DAILY@2100 [facility] Last Admin: 11/20/18 20:02 Dose: 0.4 mg Warfarin Sodium (Coumadin) 7.5 mg PO DAILY@1800 [facility] Discontinued Medications Flecainide Acetate (Tambocor) 100 mg PO BID [facility] Lactated Ringer's (Ringers, Lactated) 1,000 mls @ 75 mls/hr IV ASDIRECTED [facility] Last Admin: 11/18/18 07:51 Dose: 75 mls/hr Azithromycin 500 mg/ Sodium (Chloride) 250 mls @ 250 mls/hr IV Q24H [facility] Stop: 11/19/18 17:59 Last Admin: 11/19/18 17:46 Dose: 250 mls/hr Metoprolol Tartrate (Lopressor) 50 mg PO BID [facility] Sertraline HCl (Zoloft) 50 mg PO DAILY@2100 [facility] Last Admin: 11/17/18 21:09 Dose: Not Given Temazepam (Restoril) 15 mg PO BEDTIME PRN PRN Reason: Insomnia Last Admin: 11/19/18 21:26 Dose: 15 mg Warfarin Sodium (Coumadin) 7.5 mg PO DAILY@1800 [facility] Last Admin: 11/20/18 17:16 Dose: 7.5 mg
[2018-11-21] MEDS ORDERED: Warfarin 2.5 MG Tab PO SCH (18:00)
== END 2018-11-21 15:40 | disposition home or self-care (01) | DRG 195 ==
LOC: LL.DI 14:46 → LL.MS 15:45
PROVIDERS: ADMIT Nurse Practitioner Family; ATTEND Family Medicine
DX: J18.9 Pneumonia, unspecified organism (principal); H54.7 Unspecified visual loss; E78.00 Pure hypercholesterolemia, unspecified; I10 Essential (primary) hypertension; K21.9 Gastro-esophageal reflux disease without esophagitis; F41.8 Other specified anxiety disorders; M19.91 Primary osteoarthritis, unspecified site; I48.0 Paroxysmal atrial fibrillation; E11.40 Type 2 diabetes mellitus with diabetic neuropathy, unspecified; G89.29 Other chronic pain; R51 Headache; Z87.11 Personal history of peptic ulcer disease; G47.30 Sleep apnea, unspecified; Z87.891 Personal history of nicotine dependence; Z79.01 Long term (current) use of anticoagulants; Z79.84 Long term (current) use of oral hypoglycemic drugs; Z85.828 Personal history of other malignant neoplasm of skin; Z79.899 Other long term (current) drug therapy; Z86.010 Personal history of colon polyps; E86.0 Dehydration; R79.89 Other specified abnormal findings of blood chemistry
CPT/HCPCS: 36415; 71046; 80053; 81001; 82803; 82962; 85025; 85610; 85652; 86140; 86738; 87040; 87086; A9270-GY; J0456; J0713; J7050; J7120

== ENCOUNTER 2023-03-12 14:30 | Emergency (ER) | payer MEDICARE, BC ==
[2023-03-12 14:36] VITALS: PULSE 50
[2023-03-12 15:05] VITALS: BP 145/63
== END 2023-03-12 15:45 | disposition home or self-care (01) ==
LOC: LL.ED 14:30 → SUPCPDRO 14:30 → LL.ED 15:45
DX: Z48.89 Encounter for other specified surgical aftercare (principal); I48.91 Unspecified atrial fibrillation; I10 Essential (primary) hypertension; E78.00 Pure hypercholesterolemia, unspecified; E11.9 Type 2 diabetes mellitus without complications; Z87.891 Personal history of nicotine dependence; Z88.8 Allergy status to other drugs, medicaments and biological substances
CPT/HCPCS: 99283

== ENCOUNTER 2024-04-29 13:51 | Inpatient (IN) | payer MEDICARE, BC ==
[2024-04-29 14:14] LABS: BASOPHILS ABSOLUTE AUTO 0.01 K/uL (0.00-0.20); BASOPHILS PERCENT AUTO 0.1 % (0.0-2.0); EOSINOPHILS ABSOLUTE AUTO 0.01 K/uL (0.00-0.50); EOSINOPHILS PERCENT AUTO 0.1 % (0.0-5.0); HEMATOCRIT 35.9 % (39.0-49.0); LYMPHOCYTES ABSOLUTE AUTO 0.17 K/uL (0.50-3.50); LYMPHOCYTES PERCENT AUTO 2.4 % (10.0-50.0); MEAN CORPUSCULAR HEMOGLOBIN 33.2 pg (28.2-33.3); MEAN CORPUSCULAR HGB CONC 33.4 g/dL (31.7-36.0); MEAN CORPUSCULAR VOLUME 99.4 fL (84.0-98.0); MONOCYTES ABSOLUTE AUTO 0.59 K/uL (0.00-1.00); MONOCYTES PERCENT AUTO 8.5 % (2.0-14.0); NEUTROPHILS ABSOLUTE AUTO 6.19 K/uL (1.40-7.00); NEUTROPHILS PERCENT AUTO 88.9 % (45.0-80.0); PLATELET COUNT,PLT 71 K/uL (150-350); RED BLOOD CELL COUNT 3.61 M/uL (4.33-5.41)
[2024-04-29 14:40] LABS: ALANINE AMINOTRANSFERASE,ALT 43 U/L (12-78); ALBUMIN 2.9 g/dL (3.4-5.0); ALKALINE PHOSPHATASE 146 IU/L (46-116); ASPARTATE AMNIOTRANSFERASE,AST 41 U/L (15-37); BILIRUBIN TOTAL 1.1 mg/dL (0.2-1.0); BLOOD UREA NITROGEN,BUN 25 mg/dL (7-18); CALCIUM 8.9 mg/dL (8.5-10.1); CHLORIDE,CL 101 mmol/L (98-107); ESTIMATED GFR 46 mL/min (>=60); GLUCOSE RANDOM 153 mg/dL (70-99); MAGNESIUM 1.4 mg/dL (1.8-2.4); POTASSIUM,K 4.2 mmol/L (3.5-5.1); PRO B-TYPE NATRIUR PEPT,BNPPRO 2412 pg/mL (0-125); PROTEIN TOTAL,TP 6.8 g/dL (6.4-8.2); SODIUM,NA 137 mmol/L (136-145)
[2024-04-29 14:51] LABS: CORONAVIRUS COVID-19 NAA NEGATIVE (NEGATIVE); INFLUENZA A NAA NEGATIVE (NEGATIVE); INFLUENZA B NAA NEGATIVE (NEGATIVE); RESPIRATORY SYNCYTIAL VIR NAA NEGATIVE (NEGATIVE)
[2024-04-29] MEDS: Acetaminophen 500 MG Tab PO ONE (15:57)
[2024-04-29] MEDS ORDERED: Ondansetron 4 MG/2 ML SDV IVPUSH PRN (16:25)
[2024-04-29] MEDS ORDERED: Acetaminophen 325 MG Tab PO PRN (16:25)
[2024-04-29 16:29] LABS: APPEARANCE,URINE SLIGHTLY CLOUDY; BILIRUBIN,URINE SMALL (NEGATIVE); COLOR,URINE DARK YELLOW; GLUCOSE,URINE NEGATIVE (NEGATIVE); KETONES,URINE NEGATIVE (NEGATIVE); LEUKOCYTE ESTERASE,URINE NEGATIVE (NEGATIVE); NITRITE,URINE NEGATIVE (NEGATIVE); OCCULT BLOOD,URINE TRACE-INTACT (NEGATIVE); PH,URINE 5.5 (5.0-9.0); PROTEIN,URINE 30 mg/dL (NEGATIVE)
[2024-04-29 16:30] LABS: BACTERIA,URINE RARE /HPF (NONE TO FEW); EPITHELIAL CELLS,URINE RARE /LPF; RBC,URINE 0-5 /HPF; WBC,URINE 0-5 /HPF
[2024-04-29] MEDS: Sodium Chloride 0.9% 1,000 ML IV ONE (16:50)
[2024-04-29] MEDS: Magnesium Sulfate/Water Premix 2 GM in Premix Bag 1 BAG IV ONE (17:03)
[2024-04-29] MEDS: Flecainide 100 MG Tab PO SCH (17:31)
[2024-04-29] MEDS: Apixaban 5 MG Tab PO SCH (17:31)
[2024-04-29] MEDS: Metoprolol Tartrate 25 MG Tab PO SCH (17:35)
[2024-04-29] MEDS: atorvaSTATin 10 MG Tab PO SCH (20:43)
[2024-04-29] MEDS: Sertraline 50 MG Tab PO SCH (20:43)
[2024-04-29] MEDS: Sodium Chloride 0.9% 1,000 ML IV SCH (20:55)
[2024-04-30 06:49] LABS: BASOPHILS ABSOLUTE AUTO 0.02 K/uL (0.00-0.20); BASOPHILS PERCENT AUTO 0.4 % (0.0-2.0); EOSINOPHILS ABSOLUTE AUTO 0.02 K/uL (0.00-0.50); EOSINOPHILS PERCENT AUTO 0.4 % (0.0-5.0); HEMOGLOBIN 10.6 g/dL (13.1-16.8); LYMPHOCYTES ABSOLUTE AUTO 0.18 K/uL (0.50-3.50); LYMPHOCYTES PERCENT AUTO 3.5 % (10.0-50.0); MEAN CORPUSCULAR HEMOGLOBIN 33.1 pg (28.2-33.3); MEAN CORPUSCULAR HGB CONC 33.1 g/dL (31.7-36.0); MONOCYTES ABSOLUTE AUTO 0.61 K/uL (0.00-1.00); MONOCYTES PERCENT AUTO 11.8 % (2.0-14.0); NEUTROPHILS ABSOLUTE AUTO 4.36 K/uL (1.40-7.00); NEUTROPHILS PERCENT AUTO 83.9 % (45.0-80.0); PLATELET COUNT,PLT 76 K/uL (150-350); RED CELL DISTRIBUTION WIDTH 13.9 % (11.2-14.1); WHITE BLOOD CELL COUNT,WBC 5.2 K/uL (4.0-10.2)
[2024-04-30 06:54] LABS: CALCIUM 8.7 mg/dL (8.5-10.1); CREATININE 1.46 mg/dL (0.51-1.17); EST CRCL DRUG DOSING (CG) 47.92 mL/min; MAGNESIUM 1.7 mg/dL (1.8-2.4); POTASSIUM,K 4.5 mmol/L (3.5-5.1)
[2024-04-30] MEDS: GLIPIZIDE 2.5 MG PO SCH (07:46)
[2024-04-30] MEDS: Folic Acid 1 MG Tab PO SCH (07:47)
[2024-04-30] MEDS: Magnesium Sulfate/Water Premix 2 GM in Premix Bag 1 BAG IV ONE (09:00)
[2024-04-30] MEDS: Sodium Chloride 0.9% 10 ML Syringe FLUSH PRN (09:01)
[2024-04-30] MEDS: Sertraline 50 MG Tab PO SCH (14:41)
[2024-05-01 07:26] LABS: BASOPHILS ABSOLUTE AUTO 0.01 K/uL (0.00-0.20); BASOPHILS PERCENT AUTO 0.2 % (0.0-2.0); EOSINOPHILS ABSOLUTE AUTO 0.02 K/uL (0.00-0.50); EOSINOPHILS PERCENT AUTO 0.5 % (0.0-5.0); HEMOGLOBIN 9.9 g/dL (13.1-16.8); LYMPHOCYTES ABSOLUTE AUTO 0.24 K/uL (0.50-3.50); LYMPHOCYTES PERCENT AUTO 5.8 % (10.0-50.0); MEAN CORPUSCULAR HEMOGLOBIN 32.6 pg (28.2-33.3); MEAN CORPUSCULAR VOLUME 98.7 fL (84.0-98.0); MONOCYTES ABSOLUTE AUTO 0.48 K/uL (0.00-1.00); MONOCYTES PERCENT AUTO 11.7 % (2.0-14.0); NEUTROPHILS ABSOLUTE AUTO 3.36 K/uL (1.40-7.00); NEUTROPHILS PERCENT AUTO 81.8 % (45.0-80.0); PLATELET COUNT,PLT 68 K/uL (150-350); RED BLOOD CELL COUNT 3.04 M/uL (4.33-5.41); RED CELL DISTRIBUTION WIDTH 13.7 % (11.2-14.1); WHITE BLOOD CELL COUNT,WBC 4.1 K/uL (4.0-10.2)
[2024-05-01 08:08] LABS: ANION GAP 6.4 meq/L (7-15); CALCIUM 8.4 mg/dL (8.5-10.1); CARBON DIOXIDE,CO2 27.6 mmol/L (21.0-32.0); CREATININE 1.33 mg/dL (0.51-1.17); EST CRCL DRUG DOSING (CG) 52.6 mL/min; MAGNESIUM 1.7 mg/dL (1.8-2.4); POTASSIUM,K 4.3 mmol/L (3.5-5.1)
[2024-05-01 17:19] VITALS: BP 115/61; PULSE 61
== END 2024-05-01 15:15 | disposition home or self-care (01) | DRG 641 ==
LOC: LL.ED 13:51 → LL.MS 16:06
PROVIDERS: ADMIT Emergency Medicine; ATTEND Emergency Medicine
DX: E83.42 Hypomagnesemia (principal); R53.1 Weakness; Z68.41 Body mass index [BMI] 40.0-44.9, adult; I10 Essential (primary) hypertension; E78.00 Pure hypercholesterolemia, unspecified; I48.91 Unspecified atrial fibrillation; K21.9 Gastro-esophageal reflux disease without esophagitis; E11.40 Type 2 diabetes mellitus with diabetic neuropathy, unspecified; Z90.49 Acquired absence of other specified parts of digestive tract; F41.9 Anxiety disorder, unspecified; F32.A Depression, unspecified; Z88.8 Allergy status to other drugs, medicaments and biological substances; G89.29 Other chronic pain; M10.9 Gout, unspecified; M19.90 Unspecified osteoarthritis, unspecified site; E66.9 Obesity, unspecified; H54.7 Unspecified visual loss; D75.839 Thrombocytosis, unspecified; S00.03XA Contusion of scalp, initial encounter; Z87.11 Personal history of peptic ulcer disease; Z79.01 Long term (current) use of anticoagulants; Z90.89 Acquired absence of other organs; Z79.84 Long term (current) use of oral hypoglycemic drugs; Z87.442 Personal history of urinary calculi; Z79.899 Other long term (current) drug therapy; Z98.890 Other specified postprocedural states; W19.XXXA Unspecified fall, initial encounter
CPT/HCPCS: 0241U; 36415; 70450; 71045; 72125; 80048; 80053; 81001; 82272; 82947; 83605; 83735; 83880; 84484; 85025; 87045; 87046; 87493; 93005; 93010; 97162-GP; 97165-GO; 99285; A9270-GY; J3475; J3490; J7030

== ENCOUNTER 2024-08-30 04:37 | Emergency (ER) | payer MEDICARE, BC ==
[2024-08-30] MEDS ORDERED: Sodium Chloride 0.9% 1,000 ML IV ONE (04:39)
[2024-08-30] MEDS: Sodium Chloride 0.9% 10 ML Syringe FLUSH PRN (05:06)
[2024-08-30] MEDS: Lactated Ringers 1,000 ML IV ONE (05:06)
[2024-08-30] MEDS: Ondansetron 4 MG/2 ML SDV IVPUSH ONE ×2 (05:06→10:07)
[2024-08-30 05:16] LABS: BASOPHILS ABSOLUTE AUTO 0.01 K/uL (0.00-0.20); BASOPHILS PERCENT AUTO 0.2 % (0.0-2.0); EOSINOPHILS ABSOLUTE AUTO 0.03 K/uL (0.00-0.50); EOSINOPHILS PERCENT AUTO 0.7 % (0.0-5.0); HEMATOCRIT 32.2 % (39.0-49.0); HEMOGLOBIN 10.9 g/dL (13.1-16.8); IMMATURE GRAN ABSOLUTE AUTO 0.01 10^3/uL (0.00-0.04); IMMATURE GRAN PERCENT AUTO 0.2 % (0.0-0.4); LYMPHOCYTES ABSOLUTE AUTO 0.12 K/uL (0.50-3.50); LYMPHOCYTES PERCENT AUTO 2.8 % (10.0-50.0); MEAN CORPUSCULAR HEMOGLOBIN 33.9 pg (28.2-33.3); MEAN CORPUSCULAR HGB CONC 33.9 g/dL (31.7-36.0); MONOCYTES ABSOLUTE AUTO 0.53 K/uL (0.00-1.00); MONOCYTES PERCENT AUTO 12.4 % (2.0-14.0); NEUTROPHILS ABSOLUTE AUTO 3.59 K/uL (1.40-7.00); NEUTROPHILS PERCENT AUTO 83.7 % (45.0-80.0); PLATELET COUNT,PLT 164 K/uL (150-350); RED BLOOD CELL COUNT 3.22 M/uL (4.33-5.41); RED CELL DISTRIBUTION WIDTH 23.8 % (11.2-14.1); WHITE BLOOD CELL COUNT,WBC 4.3 K/uL (4.0-10.2)
[2024-08-30 05:34] LABS: INR 1.5 (0.9-1.1); PROTHROMBIN TIME 14.2 SEC (9.0-11.1)
[2024-08-30 05:37] LABS: ALANINE AMINOTRANSFERASE,ALT 17 U/L (12-78); ALBUMIN 2.9 g/dL (3.4-5.0); ALKALINE PHOSPHATASE 119 IU/L (46-116); ANION GAP 11.8 meq/L (7-15); ASPARTATE AMNIOTRANSFERASE,AST 19 U/L (15-37); BILIRUBIN TOTAL 1.1 mg/dL (0.2-1.0); BLOOD UREA NITROGEN,BUN 25 mg/dL (7-18); CALCIUM 7.8 mg/dL (8.5-10.1); CARBON DIOXIDE,CO2 25.2 mmol/L (21.0-32.0); CHLORIDE,CL 106 mmol/L (98-107); CREATININE 1.56 mg/dL (0.51-1.17); ESTIMATED GFR 47 mL/min (>=60); GLUCOSE RANDOM 216 mg/dL (70-99); MAGNESIUM 0.8 mg/dL (1.8-2.4); POTASSIUM,K 4.4 mmol/L (3.5-5.1); PROTEIN TOTAL,TP 6.7 g/dL (6.4-8.2); SODIUM,NA 143 mmol/L (136-145)
[2024-08-30 05:56] LABS: INFLUENZA A NAA NEGATIVE (NEGATIVE); INFLUENZA B NAA NEGATIVE (NEGATIVE); RESPIRATORY SYNCYTIAL VIR NAA NEGATIVE (NEGATIVE)
[2024-08-30 05:59] LABS: CORONAVIRUS COVID-19 NAA POSITIVE (NEGATIVE)
[2024-08-30] MEDS: Magnesium Sulf/Wat 4 GM/100 mL 4 GM in Premix Bag 1 BAG IV ONE (06:07)
[2024-08-30 10:26] VITALS: BP 157/74; PULSE 74
== END 2024-08-30 11:55 | disposition home or self-care (01) ==
LOC: LL.ED 04:37
DX: U07.1 COVID-19 (principal); E86.0 Dehydration; I10 Essential (primary) hypertension; E78.00 Pure hypercholesterolemia, unspecified; I48.91 Unspecified atrial fibrillation; E11.9 Type 2 diabetes mellitus without complications; Z86.16 Personal history of COVID-19; Z88.8 Allergy status to other drugs, medicaments and biological substances; Z79.899 Other long term (current) drug therapy; Z79.84 Long term (current) use of oral hypoglycemic drugs
CPT/HCPCS: 0241U; 36415; 80053; 83735; 85025; 85610; 96361; 96365; 96366; 96375; 96376; 99284-25; J2405; J3475; J7120

== ENCOUNTER 2024-08-31 15:48 | Emergency (ER) | payer MEDICARE, BC ==
[2024-08-31] MEDS ORDERED: Sodium Chloride 0.9% 10 ML Syringe FLUSH PRN (16:16)
[2024-08-31] MEDS: Ondansetron 4 MG/2 ML SDV IVPUSH ONE ×2 (16:39→19:29)
[2024-08-31] MEDS: Sodium Chloride 0.9% 10 ML Syringe FLUSH PRN (16:40)
[2024-08-31 16:56] LABS: ALANINE AMINOTRANSFERASE,ALT 19 U/L (12-78); ALKALINE PHOSPHATASE 114 IU/L (46-116); ASPARTATE AMNIOTRANSFERASE,AST 22 U/L (15-37); BILIRUBIN TOTAL 1.2 mg/dL (0.2-1.0); BLOOD UREA NITROGEN,BUN 25 mg/dL (7-18); CALCIUM 8.6 mg/dL (8.5-10.1); CHLORIDE,CL 102 mmol/L (98-107); GLUCOSE RANDOM 180 mg/dL (70-99); LIPASE 18 U/L (16-77); MAGNESIUM 1.3 mg/dL (1.8-2.4); POTASSIUM,K 4.1 mmol/L (3.5-5.1); PROTEIN TOTAL,TP 7.1 g/dL (6.4-8.2); SODIUM,NA 140 mmol/L (136-145)
[2024-08-31 17:01] LABS: BASOPHILS ABSOLUTE AUTO 0.01 K/uL (0.00-0.20); BASOPHILS PERCENT AUTO 0.4 % (0.0-2.0); EOSINOPHILS ABSOLUTE AUTO 0.01 K/uL (0.00-0.50); EOSINOPHILS PERCENT AUTO 0.4 % (0.0-5.0); ESTIMATED GFR 49 mL/min (>=60); HEMATOCRIT 35.9 % (39.0-49.0); HEMOGLOBIN 12.2 g/dL (13.1-16.8); IMMATURE GRAN ABSOLUTE AUTO 0.01 10^3/uL (0.00-0.04); IMMATURE GRAN PERCENT AUTO 0.4 % (0.0-0.4); LYMPHOCYTES ABSOLUTE AUTO 0.19 K/uL (0.50-3.50); LYMPHOCYTES PERCENT AUTO 7.1 % (10.0-50.0); MEAN CORPUSCULAR HEMOGLOBIN 33.5 pg (28.2-33.3); MEAN CORPUSCULAR VOLUME 98.6 fL (84.0-98.0); MONOCYTES ABSOLUTE AUTO 0.54 K/uL (0.00-1.00); MONOCYTES PERCENT AUTO 20.3 % (2.0-14.0); NEUTROPHILS PERCENT AUTO 71.4 % (45.0-80.0); PLATELET COUNT,PLT 188 K/uL (150-350); RED BLOOD CELL COUNT 3.64 M/uL (4.33-5.41); RED CELL DISTRIBUTION WIDTH 23.6 % (11.2-14.1); WHITE BLOOD CELL COUNT,WBC 2.7 K/uL (4.0-10.2)
[2024-08-31] MEDS: Lactated Ringers 1,000 ML IV ONE (17:09)
[2024-08-31] MEDS: Magnesium Sulf/Wat 4 GM/100 mL 4 GM in Premix Bag 1 BAG IV ONE (17:16)
[2024-08-31 17:19] LABS: INR 1.4 (0.9-1.1); PROTHROMBIN TIME 13.8 SEC (9.0-11.1); PTT,PARTIAL THROMBOPLSTIN TIME 26.5 SEC (23.8-34.4)
[2024-08-31] MEDS: Iopamidol 612 MG/ML 100 ML Bottle IVPUSH ONE (17:19)
[2024-08-31] MEDS: Lactated Ringers 1,000 ML IV SCH (18:33)
[2024-08-31 19:06] VITALS: PULSE 82
[2024-08-31 19:25] VITALS: BP 169/73
== END 2024-08-31 19:45 ==
LOC: LL.ED 15:48
DX: K56.609 Unspecified intestinal obstruction, unspecified as to partial versus complete obstruction (principal); E83.42 Hypomagnesemia; I48.91 Unspecified atrial fibrillation; I10 Essential (primary) hypertension; E78.00 Pure hypercholesterolemia, unspecified; K21.9 Gastro-esophageal reflux disease without esophagitis; E11.42 Type 2 diabetes mellitus with diabetic polyneuropathy; Z86.16 Personal history of COVID-19; Z90.49 Acquired absence of other specified parts of digestive tract; Z88.8 Allergy status to other drugs, medicaments and biological substances; Z79.01 Long term (current) use of anticoagulants; Z79.899 Other long term (current) drug therapy
CPT/HCPCS: 36415; 74177; 76705; 80053; 83690; 83735; 85025; 85610; 85730; 96365; 96366; 96375; 96376; 99285-25; J2405; J3475; J7120; Q9967